=== PATIENT | female | born 1950 | race Caucasian/White ===

== ENCOUNTER → 2018-01-07 06:53 | Outpatient (CLI) | payer MEDICARE, OTHER, SELFPAY ==
--- NOTE | 2018-01-07 10:28 | STRESSREP ---
Stress Test Report Date: 01/07/2018 Procedure: Her sized tolerance test/nuclear imaging study Indications: Fatigue; weakness; palpitations Consent: Per the patient Procedure: The patient exercised on a Sj protocol for 6 minutes completing stage II achieving a peak heart rate of 148 bpm (98% predicted maximal heart rate) with a peak blood pressure 160/86 mmHg and a peak MET capacity of 7 METs. The baseline ECG demonstrated normal sinus rhythm. The peak exercise ECG demonstrated no obvious ECG changes. There was a rare PVC during exercise and recovery. The functional capacity was considered average. There was no report of chest discomfort during exercise or recovery. The examination was discontinued secondary to fatigue. Impression: 1. Technically adequate (percent predicted maximal heart rate greater than 85%) exercise tolerance test 2. Peak exercise ECG with no obvious ECG changes 3. Rare PVC during exercise and recovery 4. Nuclear images pending Myocardial perfusion imaging study: Technique: The patient was injected with 9.9 mCi of technetium 99m Cardiolite and subsequently rest SPECT Cardiolite nuclear imaging was obtained in the horizontal long, vertical long, and short axis views. The patient exercised on a Sj protocol for 6 minutes completing stage II achieving a peak heart rate of 148 bpm (98% predicted maximal heart rate) with a peak blood pressure 160/86 mmHg and a peak MET capacity of 7 METs and the patient was injected with 32.1 mCi of technetium 99m Cardiolite and subsequently stress SPECT Cardiolite nuclear imaging was obtained in the horizontal long, vertical long, and short axis views. A gated Cardiolite study at peak stress was obtained. Interpretation: Rest and stress SPECT Cardiolite nuclear imaging demonstrate status post realignment, normalization, and attenuation correction, relative uniform tracer uptake and myocardial perfusion appearing within normal limits. There are no myocardial perfusion deficits appreciated on the resting or stress polar map images. There is end systolic thickening and brightening. The gated Cardiolite study demonstrates myocardial thickening and inward wall motion. The reported LVEF 78%. Impression: 1. Rest and stress SPECT currently nuclear imaging demonstrating relative uniform tracer uptake and myocardial perfusion appearing within normal limits. 2. The gated Cardiolite study reports an LVEF of 78%. This note was generated with V[employer]Park software. Every effort was made to ensure accuracy, however, computerized ski topper mistakes may persist.
--- NOTE | 2018-01-07 10:33 | STRESSREP_ITS ---
Stress Test Report Date: 01/07/2018 Procedure: Her sized tolerance test/nuclear imaging study Indications: Fatigue; weakness; palpitations Consent: Per the patient Procedure: The patient exercised on a Sj protocol for 6 minutes completing stage II achieving a peak heart rate of 148 bpm (98% predicted maximal heart rate) with a peak blood pressure 160/86 mmHg and a peak MET capacity of 7 METs. The baseline ECG demonstrated normal sinus rhythm. The peak exercise ECG demonstrated no obvious ECG changes. There was a rare PVC during exercise and recovery. The functional capacity was considered average. There was no report of chest discomfort during exercise or recovery. The examination was discontinued secondary to fatigue. Impression: 1. Technically adequate (percent predicted maximal heart rate greater than 85% ) exercise tolerance test 2. Peak exercise ECG with no obvious ECG changes 3. Rare PVC during exercise and recovery 4. Nuclear images pending Myocardial perfusion imaging study: Technique: The patient was injected with 9.9 mCi of technetium 99m Cardiolite and subsequently rest SPECT Cardiolite nuclear imaging was obtained in the horizontal long, vertical long, and short axis views. The patient exercised on a Sj protocol for 6 minutes completing stage II achieving a peak heart rate of 148 bpm (98% predicted maximal heart rate) with a peak blood pressure 160/86 mmHg and a peak MET capacity of 7 METs and the patient was injected with 32.1 mCi of technetium 99m Cardiolite and subsequently stress SPECT Cardiolite nuclear imaging was obtained in the horizontal long, vertical long, and short axis views. A gated Cardiolite study at peak stress was obtained. Interpretation: Rest and stress SPECT Cardiolite nuclear imaging demonstrate status post realignment, normalization, and attenuation correction, relative uniform tracer uptake and myocardial perfusion appearing within normal limits. There are no myocardial perfusion deficits appreciated on the resting or stress polar map images. There is end systolic thickening and brightening. The gated Cardiolite study demonstrates myocardial thickening and inward wall motion. The reported LVEF 78%. Impression: 1. Rest and stress SPECT currently nuclear imaging demonstrating relative uniform tracer uptake and myocardial perfusion appearing within normal limits. 2. The gated Cardiolite study reports an LVEF of 78%. This note was generated with SailPlay software. Every effort was made to ensure accuracy, however, computerized thread grinder tool mistakes may persist.
== END ==
PROVIDERS: Family Provider Family Medicine; PCP Family Medicine; Visit Provider Internal Medicine Cardiovascular Disease
DX: R94.31 Abnormal electrocardiogram [ECG] [EKG] (principal); I49.3 Ventricular premature depolarization; I10 Essential (primary) hypertension; I51.7 Cardiomegaly; R53.83 Other fatigue; R53.1 Weakness; R00.2 Palpitations; Z79.899 Other long term (current) drug therapy
CPT/HCPCS: 78452; 93017; A9500; A4216

== ENCOUNTER 2018-03-30 07:30 | Outpatient (RCR) | payer MEDICARE, OTHER, SELFPAY ==
--- NOTE | 2017-12-30 10:16 | HP.PTEVAL ---
Patient's Visit Information LASHELL PAEZ is a 67 year old F referred to Physical Therapy by MD SIRI Rush with a diagnosis of CERVICALAGIA. Date of Evaluation: 12/30/17 Physical Therapist: Newton Howell, PT, - Visit Plan Frequency: 2x /Week Duration: 4 Weeks Plan: postural ex's,STRENGTHENING UE,modlaities PRN - Subjective Subjective: This 67 y/o female presents to physical therapy presents with cervicalagia. Patient has had cervical pain with symptoms to shoulders with ocassioanlly weakness BUE. Denies parathesia/tingling ocassionally right. Patient has seen Dr Shenprakali many years.Symptoms worse with turning ,flexion and extension ,lifting symptoms worse .Symptoms better with aleve. Sleeping good at night. Ocassioanlly REYNAGA ,denies dizzines but has h/o of vertigo. NO prior PT. No h/o trauma. SOCIAL: . VOCATION: retired - Pain Bilateral Neck Pain Intensity (Out of 10): 3 Pain Intensity Range: 10 Bilateral Shoulder Pain Intensity (Out of 10): 3 Pain Intensity Range: 10 Comment: UT - Objective POSTURE: mild foward posture. NEURO: denies parathesia/tingling ,reflexes inact C5-6-7 1/3,mytome weaknes C 5-6. AROM: BUE WFL. MMT:shoulder 3+/5,bicep R 3+/5,L 4-/5,TRICEP R 4-/5 ,L 4/5,WRIST FLEXORS/EX 4-/5. INSTRUMENT PANEL ASSEMBLER STRENGTH: 45# R,55# L. CERVICAL ROM: flexion min loss,extension min ,lateral flexion/rotation mod loss. PALAPTION: tender UT/levator paraspinals - Special Tests C/S Radiculapathy - Left Upper limb tension test: Negative C/S Radiculapathy - Right Upper limb tension test: Negative Sharp Edie: Negative Vertebral Artery Test: Negative Alar Ligament Test: Negative - Goals Goal 1:: Patient to be Independant with HEP Goal Time Frame: 4-6 Weeks Goal 2:: Patient to be Independant with posture for ADL'S Goal Time Frame: 4-6 Weeks Goal 3:: Patient to decrease cervical pain andshoulder pain by 50% or greater Goal Time Frame: 4-6 Weeks Goal 4:: Patinet to increase strength of BUE to 4-/5 shoulder ,elbow 4/5 to improve function. Goal Time Frame: 4-6 Weeks Goal 5:: Patient be able to perform ADL'S and housework tasks with min limiations Goal Time Frame: 4-6 Weeks - Rehabilitation Potential Physical Therapy Diagnosis: This patient has extusion in cervical C-7 ,with multiple level mod/severe foraminal and spinal stenosis sublaxation with weakness UE Rehabilitation Potential: Good - Anticipated Interventions Patient/Client Instruction: Educate patient on: Condition, Plan of Care For the Purpose of:: To decrease pain, To increase ROM, To improve muscle performance and motor function, To improve ability to perform ADL's, To increase tolerance to activity/condition/position, To improve ability of physical actions for home/community/work/leisure, To improve health of tissue, To decrease soft tissue restriction, To increase flexibility/ROM, To improve ability to perform tasks related to life management Therapeutic Exercise to Include: Strength training, Postural training, Flexibilty training Comment: BUE For the Purpose of:: To decrease pain, To increase ROM, To improve muscle performance and motor function, To improve ability to perform ADL's, To increase tolerance to activity/condition/position, To improve performance and independence with ADL's, To improve ability of physical actions for home/community/work/leisure, To improve health of tissue, To increase flexibility/ROM, To prevent re-injury TENS: Yes IF ES: Yes Cryotherapy (ice pack, ice massage): Yes Thermo therapy (hot pack): Yes Ultrasound (thermal/non thermal): Yes For the Purpose of:: To decrease pain, To decrease swelling/inflammation, To improve nutrient delivery to tissue, To increase oxygenation perfusion, To improve health of tissue, To decrease soft tissue restriction Thank you for the opportunity to evaluate your patient. For Medicare and Medicare HMO plans, please review the plan of care and approve it. It will need to be FAXED BACK to us at [phone] for Medicare purposes. Please let me know if there are questions or concerns regarding this plan of care. Physician Signature: Date:
--- NOTE | 2018-01-29 08:03 | HP.PTREVAL_ITS ---
Charlotte Bullock MD, It has been my pleasure to treat LASHELL PAEZ over the last 9 visits for CERVICALAGIA. Please see the progress note below for an update on the physical therapy plan of care! Subjective: Doing better ..pain is always there. turning cervical ,driving Objective/Function: POSTURE: rounded shoulders head fowad. NEURO: intact, REFLEXES C5-6-7. MMT: 4/5. CERVICAL ROM: flexion min loss, lateral flexion/ rotation mod loss pain right ,extension. -ANR Plan Plan: cont with POC 3visits Goals Goal 1:: Patient to be Independant with HEP Goal Time Frame: 4-6 Weeks Goal Progress: Progressing Goal 2:: Patient to be Independant with posture for ADL'S Goal Time Frame: 4-6 Weeks Goal Progress: Progressing Goal 3:: Patient to decrease cervical pain andshoulder pain by 50% or greater Goal Time Frame: 4-6 Weeks Goal Progress: Progressing Goal 4:: Patinet to increase strength of BUE to 4-/5 shoulder ,elbow 4/5 to improve function. Goal Time Frame: 4-6 Weeks Goal Progress: Progressing Goal 5:: Patient be able to perform ADL'S and housework tasks with min limiations Goal Time Frame: 4-6 Weeks Goal Progress: Progressing Anticipated Interventions Patient/Client Instruction: Educate patient on: Condition, Plan of Care For the Purpose of:: To decrease pain, To increase ROM, To improve muscle performance and motor function, To improve ability to perform ADL's, To increase tolerance to activity/condition/position, To improve ability of physical actions for home/community/work/leisure, To improve health of tissue, To decrease soft tissue restriction, To increase flexibility/ROM, To improve ability to perform tasks related to life management Therapeutic Exercise to Include: Strength training, Postural training, Flexibilty training Comment: BUE For the Purpose of:: To decrease pain, To increase ROM, To improve muscle performance and motor function, To improve ability to perform ADL's, To increase tolerance to activity/condition/position, To improve performance and independence with ADL's, To improve ability of physical actions for home/ community/work/leisure, To improve health of tissue, To increase flexibility/ROM , To prevent re-injury TENS: Yes IF ES: Yes Cryotherapy (ice pack, ice massage): Yes Thermo therapy (hot pack): Yes Ultrasound (thermal/non thermal): Yes For the Purpose of:: To decrease pain, To decrease swelling/inflammation, To improve nutrient delivery to tissue, To increase oxygenation perfusion, To improve health of tissue, To decrease soft tissue restriction Please do not hesitate to contact me at [phone] by phone or Fax: if you have questions or concerns regarding this new plan of care! Sincerely, Newton Howell PT,
--- NOTE | 2018-03-30 08:12 | HP.PTDCSUM_ITS ---
HP - PT D/C Summary It has been my pleasure to treat LASHELL PAEZ under orders from Charlotte Bullock MD, for the diagnosis of CERVICALAGIA for a total of 12 visit(s). Discharge Date: 03/30/18 Please see the following information for a summary of their discharge status. - Subjective Subjective: Doing good - Pain Bilateral Neck Pain Intensity (Out of 10): 0 Bilateral Shoulder Pain Intensity (Out of 10): 0 - Overall Improvement % Improvement: 75 - Objective Objective/Function: PALAPTION: UT/levator. NEURO:intact. CERVICAL ROM: flexion min loss,lateral flexion/rotation mod loss,extension mod loss. MMT: 4/ 5 except shoulders 4-/5 - Goals Goal 1:: Patient to be Independant with HEP Goal Progress: Progressing Goal 2:: Patient to be Independant with posture for ADL'S Goal Progress: Progressing Goal 3:: Patient to decrease cervical pain andshoulder pain by 50% or greater Goal Progress: Progressing Goal 4:: Patinet to increase strength of BUE to 4-/5 shoulder ,elbow 4/5 to improve function. Goal Progress: Progressing Goal 5:: Patient be able to perform ADL'S and housework tasks with min limiations Goal Progress: Progressing - Plan Plan: d/c to HEP - D/C Information Discharge Comments: D/C TO HEP If there are questions or concerns regarding this patient's physical therapy, please feel free to call me at [phone]. Thank you for the referral of this patient. Sincerely, Newton Howell, PT,
== END 2018-03-30 19:00 | disposition home or self-care (01) ==
LOC: PT 07:30
PROVIDERS: Family Provider Family Medicine; PCP Family Medicine; Visit Provider Family Medicine
DX: M54.2 Cervicalgia (principal)
CPT/HCPCS: 97014; 97035; 97110; 97162; 97530; G0283

== ENCOUNTER → 2018-07-21 07:12 | Outpatient (CLI) | payer MEDICARE, OTHER, SELFPAY | PROVIDERS: Family Provider Family Medicine; PCP Family Medicine; Visit Provider Family Medicine | DX: R10.9 Unspecified abdominal pain (principal) | CPT/HCPCS: 74019 ==

== ENCOUNTER → 2018-07-26 10:12 | Outpatient (CLI) | payer MEDICARE, OTHER, SELFPAY | PROVIDERS: Family Provider Family Medicine; PCP Family Medicine; Visit Provider Nurse Practitioner Adult Health | DX: N20.0 Calculus of kidney (principal) | CPT/HCPCS: 74176 ==

== ENCOUNTER → 2018-08-20 10:44 | Outpatient (CLI) | payer MEDICARE, OTHER, SELFPAY ==
[2018-08-20 12:16] LABS: Anion Gap 6 (5-15); BUN 15 mg/dL (7-18); BUN/Creat Ratio 19.1 RATIO (10-20); Calcium,Total 8.8 mg/dL (8.5-10.1); Chloride 104 mmol/L (98-107); Cholesterol 243 mg/dL (200); Creatinine, Serum 0.78 mg/dL (0.55-1.02); EST Glomerular Filtration Rate 77 mL/min (>60); Est Glom Filt Rate - Afr Amer 93 mL/min (>60); Glucose 112 mg/dL (74-106); High Density Lipoprotein 91 mg/dL; Potassium 4.2 mmol/L (3.5-5.1); Sodium Level 137 mmol/L (136-145); T4 Total, Thyroxin 12.3 ug/dL (4.8-13.9); Triglycerides 70 mg/dL; Very Low Density Lipoprotein 14 mg/dL (5-40)
== END ==
PROVIDERS: Family Provider Family Medicine; PCP Family Medicine; Visit Provider Family Medicine
DX: I10 Essential (primary) hypertension (principal); E03.9 Hypothyroidism, unspecified
CPT/HCPCS: 36415; 80048; 80061; 84436; 84443

== ENCOUNTER → 2019-05-03 07:14 | Outpatient (CLI) | payer MEDICARE, OTHER, SELFPAY ==
[2018-12-06 09:27] VITALS: BMI 25.1
[2019-05-03 09:57] LABS: Absolute Lymphocyte Count 1.35 X10^3/ul (0.83-4.51); Absolute Neutrophil Count 2.9 X10^3/uL (2.0-7.7); Basophil# 0.05 X10^3/uL; Basophil% 0.9 % (0-1); Eosinophil# 1.02 X10^3/uL; Eosinophils% 17.5 % (0-5); Hematocrit 45.1 % (37-47); Lymphocyte # 1.35 X10^3/ul (4.0); Lymphocyte % 23.2 % (19-41); Mean Corp Hgb Conc 33.3 g/gl (32-36); Mean Corpuscular Hgb 29.5 pg (27.0-32.0); Mean Corpuscular Volume 88.8 fL (81-99); Mean Platelet Vol. 10.1 fl (6.2-12.0); Monocyte# 0.48 X10^3/uL; Monocyte% 8.2 % (0-10); Neutrophil # 2.92 X10^3/uL (2.7-7.7); POSITIVE COUNT NO; POSITIVE DIFFERENTIAL NO; POSITIVE MORPHOLOGY NO; Platelet Count 217 K/mm3 (150-450); RBC Distribution Width CV 12.8 % (11.6-14.6); RBC Distribution Width SD 41.2 fl (35.1-43.9); Red Blood Count 5.08 M/mm3 (4.2-5.4); White Blood Count 5.8 K/mm3 (4.4-11.0)
[2019-05-09 12:06] LABS: Immunoglobulin E 372 IU/mL (6-495)
[2019-06-29 15:58] LABS: Oak, White <0.10
== END ==
PROVIDERS: Family Provider Family Medicine; PCP Family Medicine; Referring Provider Specialist; Visit Provider Specialist
DX: J45.50 Severe persistent asthma, uncomplicated (principal)
CPT/HCPCS: 36415; 82785; 85025; 86003

== ENCOUNTER → 2019-05-09 11:01 | Outpatient (CLI) | payer MEDICARE, OTHER, SELFPAY ==
[2018-12-06 09:27] VITALS: BMI 25.1
[2019-05-09 12:39] LABS: Hemoglobin A1c 5.7 % (4.2-6.3)
[2019-05-09 12:51] LABS: Anion Gap 7 (5-15); BUN 10 mg/dL (7-18); BUN/Creat Ratio 14.2 RATIO (10-20); Calcium,Total 8.9 mg/dL (8.5-10.1); Chloride 103 mmol/L (98-107); EST Glomerular Filtration Rate 87 mL/min (>60); Est Glom Filt Rate - Afr Amer 106 mL/min (>60); Glucose 102 mg/dL (74-106); Potassium 4.2 mmol/L (3.5-5.1); Sodium Level 141 mmol/L (136-145); Thyroid Stim Hormone (TSH) 1.19 uIU/mL (0.358-3.74)
== END ==
PROVIDERS: Family Provider Family Medicine; PCP Family Medicine; Visit Provider Family Medicine
DX: I10 Essential (primary) hypertension (principal); R73.01 Impaired fasting glucose
CPT/HCPCS: 36415; 80048; 83036; 84436; 84443

== ENCOUNTER → 2019-05-11 15:45 | Outpatient (CLI) | payer MEDICARE, OTHER, SELFPAY ==
[2018-12-06 09:27] VITALS: BMI 25.1
--- NOTE | 2019-05-11 15:50 | RAD_ITS ---
STUDY: X-RAY - LUMBAR SPINE REASON FOR EXAM: Female, 69 years old. Low back pain for 3 days. TECHNIQUE: 5 view(s) of the lumbar spine were obtained. COMPARISON: None FINDINGS: Normal lumbar lordosis. There is minimal dextroscoliosis. There is a normal alignment of the vertebrae. Normal vertebral bodies and endplates. There is moderate narrowing of L2-L3 and L3-L4 disc spaces and mildly of L4-L5. The There is no demonstrated spondylolysis of the pars interarticulares. The soft tissue structures are unremarkable. RAD/L/S Spine Min 4 Views IMPRESSION: Degenerative changes as described above. Electronically Signed: Chris Medina MD at 10:33 EDT Tel , Service support ,
== END ==
PROVIDERS: Family Provider Family Medicine; PCP Family Medicine; Referring Provider Family Medicine; Visit Provider Family Medicine
DX: M54.9 Dorsalgia, unspecified (principal)
CPT/HCPCS: 72110

== ENCOUNTER 2019-05-28 17:02 | Emergency (ER) | payer MEDICARE, OTHER, SELFPAY ==
[2018-12-06 09:27] VITALS: BMI 25.1
[2019-05-28 17:04] VITALS: BP 173/85; PULSE 90; RESP 16; TEMP 36.6; O2SAT 96; BMI 25.2
--- NOTE | 2019-05-28 17:31 | ED.VIS.GEN ---
History of Present Illness Chief Complaint: Rash Informant: Patient, Significant Other Onset: Weeks - 3 weeks Context: Gradual Onset Timing: Continuous Quality: shrap, burning Location: left lower back, left flank, left thigh Current Severity: Moderate Maximum Severity: Severe Worsened by: movement, palpation Relieved by: nothing Associated Symptoms: back pain Narrative: 69-year-old female presents with a rash. Patient few weeks ago diagnosed with shingles by her doctor. She was prescribed acyclovir. She went back with worsening pain. Her doctor then prescribed her gabapentin. She is continuing to have pain therefore her doctor has slowly increased her dose. She went back with continued pain and was given Percocet. Percocet help with the pain but she states that it made her feel loopy so she stopped taking it. Patient states the pain is somewhat improved but is not resolved. It is in the distribution where she had her shingles rash which is now crusted over. It is in her left lower back left flank and her left thigh. She has not had a fever. She has no numbness tingling or weakness. No loss of bowel or bladder function or difficulty urinating. No trauma or injury. Prior similar symptoms: Yes Recent Illness/Hospitalization: Yes Past Medical History - Allergies and Home Meds Allergies/Adverse Reactions: Allergies grass pollen Allergy (Verified 05/28/19 17:04) unknown aspartame [From Questran Light] Adverse Reaction (Verified 05/28/19 17:04) GI upset cholestyramine [From Questran Light] Adverse Reaction (Verified 05/28/19 17:04) GI upset lisinopril Adverse Reaction (Verified 05/28/19 17:04) angioedema Ottqqek-Tjs-Uop Reductase Inhibitor Adverse Reaction (Verified 05/28/19 17:04) myalgia verapamil Adverse Reaction (Verified 05/28/19 17:04) rash molds Allergy (Uncoded 05/28/19 17:04) unknown trees Allergy (Uncoded 05/28/19 17:04) unknown beta blockers Adverse Reaction (Uncoded 05/28/19 17:04) SOB Primary Care Physician: Charlotte Bullock MD [Primary Care Provider] - Prior records reviewed: Yes Smoking Status: Never smoker Review of Systems All systems negative except as indicated Musculoskeletal: Reports: Back pain Skin: Reports: Rash Physical Exam Vital Signs/Narrative: Vital Signs Temp Pulse Resp BP Pulse Ox 05/28/19 17:04 98 F 90 16 173/85 H 96 Inital Vital Signs reviewed: Yes General: Well nourished, Well developed, No Acute Distress Head: Normocephalic, Atraumatic Eyes: Perrl, EOMI ENT: Moist mucous membranes Neck: Supple, Nontender Cardiovascular: Regular rate, Regular rhythm Respiratory: No distress, CTA bilaterally, Chest nontender Abdomen: Soft, Nontender, Nondistended, Normal bowel sounds, No masses Back: Nontender. Negative for: CVA tenderness, Spinal tenderness Extremities: Nontender, No edema. Negative for: Tenderness Skin: Normal color, Rash, - - Crusting and healing vesicles left lower back and flank and left thigh. Neurological: Alert, Oriented x3, Cranial nerves II-XII grossly intact, Normal Strength, Normal Sensation, Normal DTR, Normal Gait Diagnostic/Tx/Re-eval - Medical Decision Making Patient presents with continued pain from her shingles. She is already on gabapentin. She leary of taking more prednisone because she states that she is on it too frequently because of her asthma. She did not like the way Percocet made her feel. She is already taking ibuprofen. Discussed with her that there are not many other options. At this time. Her pain does seem to be a postherpetic neuralgia. She does agree to take a short 5-day burst of prednisone. She was given her first dose in the emergency department. She will continue her gabapentin and ibuprofen and she was advised to follow-up with her primary care. ED Disposition - Plan for ED Patient: Disposition: Home or Assisted Living Diagnosis: Post herpetic neuralgia Instructions: Shingles (Herpes Zoster) Prescriptions: Prednisone [Deltasone] 40 mg PO DAILY #10 tab Transmission Status: Pending to [id number] Referrals: Charlotte Bullock MD [Primary Care Provider] -
[2019-05-28] MEDS: predniSONE 20 MG Tablet 60 MG PO (18:04)
== END 2019-05-28 18:05 | disposition home or self-care (01) ==
PROVIDERS: Emergency Provider Physician Assistant Medical; Family Provider Family Medicine; PCP Family Medicine
DX: B02.29 Other postherpetic nervous system involvement (principal); J45.909 Unspecified asthma, uncomplicated; M54.9 Dorsalgia, unspecified; Z79.82 Long term (current) use of aspirin; Z79.52 Long term (current) use of systemic steroids; Z79.899 Other long term (current) drug therapy
CPT/HCPCS: 99283

== ENCOUNTER → 2019-08-09 12:36 | Outpatient (CLI) | payer MEDICARE, OTHER, SELFPAY ==
[2019-08-09 14:12] LABS: Erythrocyte Sedimentation Rate 13 mm/hr (0-30)
[2019-08-09 14:14] LABS: Absolute Lymphocyte Count 1.54 X10^3/uL (0.83-4.51); Absolute Neutrophil Count 3.5 X10^3/uL (2.0-7.7); Basophil# 0.04 X10^3/uL; Basophil% 0.7 % (0-1); Eosinophil# 0.38 X10^3/uL; Eosinophils% 6.4 % (0-5); Hematocrit 44.3 % (37-47); Hemoglobin 14.5 g/dL (12.0-15.0); Lymphocyte # 1.54 X10^3/ul (4.0); Lymphocyte % 26.1 % (19-41); Mean Corp Hgb Conc 32.7 g/dL (32-36); Mean Corpuscular Hgb 29.8 pg (27.0-32.0); Mean Corpuscular Volume 91.2 fL (81-99); Mean Platelet Vol. 9.8 fl (6.2-12.0); Monocyte# 0.48 X10^3/uL; Monocyte% 8.1 % (0-10); NRBC Flagged by Analyzer 0 % (0-5); Neutrophil # 3.45 X10^3/uL (2.7-7.7); Neutrophil % 58.5 % (47-70); Platelet Count 221 K/mm3 (150-450); RBC Distribution Width CV 12.5 % (11.6-14.6); Red Blood Count 4.86 M/mm3 (4.2-5.4); White Blood Count 5.9 K/mm3 (4.4-11.0)
[2019-08-09 14:21] LABS: Vitamin B12 589 pg/mL (211-911)
== END ==
PROVIDERS: Family Provider Family Medicine; PCP Family Medicine; Referring Provider Family Medicine; Visit Provider Family Medicine
DX: K06.8 Other specified disorders of gingiva and edentulous alveolar ridge (principal)
CPT/HCPCS: 36415; 82607; 82746; 85025; 85652

== ENCOUNTER → 2019-12-14 11:44 | Outpatient (CLI) | payer MEDICARE, OTHER, SELFPAY ==
--- NOTE | 2019-12-14 11:51 | RAD_ITS ---
STUDY: X-RAY - LUMBAR SPINE REASON FOR EXAM: Female, 69 years old. Pain along both sides of lower back TECHNIQUE: 5 view(s) of the lumbar spine were obtained. COMPARISON: 05/11/2019 FINDINGS: Normal lumbar lordosis. There is no substantial scoliosis. There is a normal alignment of the vertebrae. Normal vertebral bodies and endplates. There is mild multi-level degenerative disc disease with multi-level disc space narrowing. There is no demonstrated fracture. Stable possible bilateral renal stones as much as 9 mm RAD/L/S Spine Min 4 Views IMPRESSION: Mild multilevel degenerative changes, stable. No acute abnormalities. Electronically Signed: Patrice Ibarra MD at 21:38 EST , Service support ,
== END ==
PROVIDERS: Family Provider Family Medicine; PCP Family Medicine; Referring Provider Family Medicine; Visit Provider Family Medicine
DX: M54.9 Dorsalgia, unspecified (principal)
CPT/HCPCS: 72110

== ENCOUNTER → 2020-01-06 09:04 | Outpatient (CLI) | payer MEDICARE, OTHER, SELFPAY ==
[2020-01-06 08:30] VITALS: BMI 25.9
[2020-01-06 09:48] LABS: AST(SGOT) 17 U/L (15-37); Alanine Aminotransfer ALT/SGPT 22 U/L (13-56); Albumin, Serum 3.5 g/dL (3.2-5.0); Alkaline Phosphatase 63 U/L (45-117); Bilirubin, Direct 0.12 mg/dL (0.00-0.30); Cholesterol 221 mg/dL (200); Globulin 3.7 g/dL (2.2-4.2); High Density Lipoprotein 83 mg/dL; Protein, Total 7.2 g/dL (6.4-8.2); Triglycerides 59 mg/dL; Very Low Density Lipoprotein 12 mg/dL (5-40)
== END ==
PROVIDERS: PCP Family Medicine; Referring Provider Internal Medicine Cardiovascular Disease; Visit Provider Internal Medicine Cardiovascular Disease
DX: E78.2 Mixed hyperlipidemia (principal)
CPT/HCPCS: 36415; 80061; 80076

== ENCOUNTER → 2020-01-30 09:37 | Outpatient (CLI) | payer MEDICARE, OTHER, SELFPAY ==
[2020-01-06 08:30] VITALS: BMI 25.9
[2020-01-30 12:56] LABS: Absolute Neutrophil Count 4.2 X10^3/uL (2.0-7.7); Basophil# 0.05 X10^3/uL; Basophil% 0.8 % (0-1); Eosinophil# 0.46 X10^3/uL; Eosinophils% 6.9 % (0-5); Mean Corp Hgb Conc 31.8 g/dL (32-36); Mean Corpuscular Hgb 28.9 pg (27.0-32.0); Mean Corpuscular Volume 90.9 fL (81-99); Mean Platelet Vol. 10.1 fl (6.2-12.0); Monocyte# 0.49 X10^3/uL; Monocyte% 7.4 % (0-10); NRBC Flagged by Analyzer 0 % (0-5); Neutrophil # 4.24 X10^3/uL (2.7-7.7); Neutrophil % 63.6 % (47-70); Platelet Count 246 K/mm3 (150-450); RBC Distribution Width CV 13.1 % (11.6-14.6); RBC Distribution Width SD 42.9 fl (35.1-43.9); Red Blood Count 4.84 M/mm3 (4.2-5.4); White Blood Count 6.7 K/mm3 (4.4-11.0)
[2020-01-30 13:17] LABS: Hemoglobin A1c 6.1 % (4.2-6.3)
[2020-01-30 13:33] LABS: ALB/GLOB Ratio 0.8 RATIO (0.9-2.4); AST(SGOT) 17 U/L (15-37); Alanine Aminotransfer ALT/SGPT 24 U/L (13-56); Albumin, Serum 3.4 g/dL (3.2-5.0); Alkaline Phosphatase 71 U/L (45-117); Anion Gap 6 (5-15); BUN 15 mg/dL (7-18); BUN/Creat Ratio 20.2 RATIO (10-20); Calcium,Total 9.1 mg/dL (8.5-10.1); Chloride 107 mmol/L (98-107); Creatinine, Serum 0.74 mg/dL (0.55-1.02); EST Glomerular Filtration Rate 82 mL/min (>60); Est Glom Filt Rate - Afr Amer 99 mL/min (>60); Globulin 4.1 g/dL (2.2-4.2); Glucose 109 mg/dL (74-106); Potassium 4.1 mmol/L (3.5-5.1); Protein, Total 7.5 g/dL (6.4-8.2); Sodium Level 140 mmol/L (136-145); T4 Free Direct 1.12 ng/dL (0.76-1.46); Thyroid Stim Hormone (TSH) 0.88 uIU/mL (0.358-3.74)
== END ==
PROVIDERS: PCP Family Medicine; Visit Provider Family Medicine
DX: E03.9 Hypothyroidism, unspecified (principal); I10 Essential (primary) hypertension; R73.01 Impaired fasting glucose
CPT/HCPCS: 36415; 80053; 83036; 84439; 84443; 85025

== ENCOUNTER → 2021-03-04 07:30 | Outpatient (CLI) | payer MEDICARE, OTHER, SELFPAY ==
[2020-01-06 08:30] VITALS: BMI 25.9
[2021-03-04 10:21] LABS: AST(SGOT) 17 U/L (15-37); Alanine Aminotransfer ALT/SGPT 21 U/L (13-56); Albumin, Serum 3.3 g/dL (3.2-5.0); Alkaline Phosphatase 54 U/L (45-117); Bilirubin, Direct 0.09 mg/dL (0.00-0.30); Cholesterol 216 mg/dL (200); Globulin 3.4 g/dL (2.2-4.2); High Density Lipoprotein 86 mg/dL; Protein, Total 6.7 g/dL (6.4-8.2); Triglycerides 99 mg/dL; Very Low Density Lipoprotein 20 mg/dL (5-40)
== END ==
PROVIDERS: PCP Family Medicine; Referring Provider Internal Medicine Cardiovascular Disease; Visit Provider Internal Medicine Cardiovascular Disease
DX: E78.2 Mixed hyperlipidemia (principal)
CPT/HCPCS: 36415; 80061; 80076

== ENCOUNTER → 2021-03-07 10:30 | Outpatient (CLI) | payer MEDICARE, OTHER, SELFPAY ==
[2020-01-06 08:30] VITALS: BMI 25.9
[2021-03-07 12:13] LABS: Absolute Lymphocyte Count 1.47 X10^3/uL (0.83-4.51); Absolute Neutrophil Count 3.1 X10^3/uL (2.0-7.7); Basophil# 0.05 X10^3/uL; Basophil% 0.9 % (0-1); Eosinophil# 0.53 X10^3/uL; Eosinophils% 9.6 % (0-5); Hematocrit 45.5 % (37-47); Hemoglobin 14.4 g/dL (12.0-15.0); Lymphocyte # 1.47 X10^3/ul (4.0); Lymphocyte % 26.6 % (19-41); Mean Corp Hgb Conc 31.6 g/dL (32-36); Mean Corpuscular Hgb 29.4 pg (27.0-32.0); Mean Platelet Vol. 10.5 fl (6.2-12.0); Monocyte# 0.41 X10^3/uL; Monocyte% 7.4 % (0-10); NRBC Flagged by Analyzer 0 % (0-5); Neutrophil # 3.05 X10^3/uL (2.7-7.7); Neutrophil % 55.3 % (47-70); Platelet Count 250 K/mm3 (150-450); RBC Distribution Width CV 12.7 % (11.6-14.6); RBC Distribution Width SD 43.7 fl (35.1-43.9); Red Blood Count 4.89 M/mm3 (4.2-5.4); White Blood Count 5.5 K/mm3 (4.4-11.0)
[2021-03-07 12:37] LABS: Anion Gap 2 (5-15); BUN 13 mg/dL (7-18); BUN/Creat Ratio 16.2 RATIO (10-20); Calcium,Total 8.9 mg/dL (8.5-10.1); Chloride 103 mmol/L (98-107); EST Glomerular Filtration Rate 75 mL/min (>60); Est Glom Filt Rate - Afr Amer 90 mL/min (>60); Glucose 108 mg/dL (74-106); Potassium 3.8 mmol/L (3.5-5.1); Sodium Level 138 mmol/L (136-145); T4 Free Direct 1.12 ng/dL (0.76-1.46); Thyroid Stim Hormone (TSH) 1.12 uIU/mL (0.358-3.74)
[2021-03-07 12:38] LABS: Hemoglobin A1c 5.8 % (3.8-5.6)
== END ==
PROVIDERS: PCP Family Medicine; Referring Provider Family Medicine; Visit Provider Family Medicine
DX: E03.9 Hypothyroidism, unspecified (principal); I10 Essential (primary) hypertension; R73.01 Impaired fasting glucose
CPT/HCPCS: 36415; 80048; 83036; 84439; 84443; 85025

== ENCOUNTER → 2021-03-28 15:22 | Outpatient (CLI) | payer MEDICARE, OTHER, SELFPAY ==
[2021-03-28 14:21] VITALS: BMI 25.7
[2021-03-28 18:16] LABS: Magnesium 2.2 mg/dL (1.6-2.6)
== END ==
PROVIDERS: PCP Family Medicine; Referring Provider Internal Medicine Cardiovascular Disease; Visit Provider Internal Medicine Cardiovascular Disease
DX: R07.9 Chest pain, unspecified (principal); R06.00 Dyspnea, unspecified; E78.2 Mixed hyperlipidemia; I10 Essential (primary) hypertension; I49.3 Ventricular premature depolarization
CPT/HCPCS: 36415; 83735

== ENCOUNTER → 2021-04-02 06:05 | Outpatient (CLI) | payer MEDICARE, OTHER, SELFPAY ==
[2021-03-28 14:21] VITALS: BMI 25.7
--- NOTE | 2021-04-02 18:02 | STRESSREP ---
Stress Test Report Date: 04-02-2021 Procedure: Exercise tolerance test/imaging study Indications: Shortness of breath/dyspnea on exertion Consent: Per the patient Procedure: The patient exercised on a Sj protocol for 9 minutes and 15 seconds completing Stage III and 15 seconds of Stage IV achieving a peak heart rate of 116 bpm (78% predicted maximal heart rate) with a peak blood pressure 184/7 mmHg and a peak MET capacity of 10 METs. The baseline ECG demonstrated normal sinus rhythm. The peak exercise ECG demonstrated no obvious ECG changes. There was a rare PAC during exercise and an rare PVC during recovery. The functional capacity was considered good. There was chest tightness during exercise with spontaneous resolution in recovery. The examination was discontinued secondary to chest tightness and dyspnea. Impression: 1. Technically adequate (percent predicted maximal heart rate greater than 85%) exercise tolerance test 2. Peak exercise ECG with no obvious ECG changes 3. There was a rare PAC during exercise and a rare PVC during recovery 4. Nuclear images pending Myocardial perfusion imaging study: Technique: The patient was injected with 11.3 mCi of technetium 99m Cardiolite and subsequently rest SPECT Cardiolite nuclear imaging was obtained in the horizontal long, vertical long, and short axis views. The patient exercised on a Sj protocol for 9 minutes and 15 seconds completing Stage III and 15 seconds of Stage IV achieving a peak heart rate of 116 bpm (78% predicted maximal heart rate) with a peak blood pressure 184/7 mmHg and a peak MET capacity of 10 METs. The patient was injected with 32.1 mCi of technetium 99m Cardiolite and subsequently stress SPECT Cardiolite nuclear imaging was obtained in the horizontal long, vertical long, and short axis views. A gated Cardiolite study at peak stress was obtained. Interpretation: Rest and stress SPECT Cardiolite nuclear imaging status post realignment, normalization, and attenuation correction, demonstrates the appearance of relative uniform tracer uptake and myocardial perfusion appearing within normal limits. There is end systolic thickening and brightening. The gated Cardiolite study demonstrates myocardial thickening and inward wall motion. The reported LVEF is 79%. Impression: 1. Rest and stress SPECT Cardiolite nuclear imaging demonstrate relative uniform tracer uptake and myocardial perfusion appearing within normal limits. 2. The gated Cardiolite study reports an LVEF of 79%. This note was generated with Twicketeration software. It may contain incorrect words, spelling, and punctuation that were not noted in checking the note before signing.
== END ==
PROVIDERS: PCP Family Medicine; Visit Provider Internal Medicine Cardiovascular Disease
DX: R06.09 Other forms of dyspnea (principal); R07.9 Chest pain, unspecified; I49.3 Ventricular premature depolarization; I10 Essential (primary) hypertension; E78.2 Mixed hyperlipidemia
CPT/HCPCS: 78452; 93017; A9500; A4216

== ENCOUNTER → 2021-04-06 09:03 | Outpatient (CLI) | payer MEDICARE, OTHER, SELFPAY ==
[2021-03-28 14:21] VITALS: BMI 25.7
[2021-04-06 09:55] LABS: Anion Gap 4 (5-15); BUN 26 mg/dL (7-18); BUN/Creat Ratio 27.8 RATIO (10-20); Calcium,Total 9.1 mg/dL (8.5-10.1); Chloride 101 mmol/L (98-107); Creatinine, Serum 0.93 mg/dL (0.55-1.02); EST Glomerular Filtration Rate 63 mL/min (>60); Est Glom Filt Rate - Afr Amer 76 mL/min (>60); Glucose 125 mg/dL (74-106); Potassium 3.6 mmol/L (3.5-5.1); Sodium Level 139 mmol/L (136-145)
== END ==
PROVIDERS: PCP Family Medicine; Referring Provider Internal Medicine Cardiovascular Disease; Visit Provider Internal Medicine Cardiovascular Disease
DX: R06.00 Dyspnea, unspecified (principal); R07.9 Chest pain, unspecified; E78.2 Mixed hyperlipidemia; I10 Essential (primary) hypertension; I49.3 Ventricular premature depolarization
CPT/HCPCS: 36415; 80048

== ENCOUNTER → 2021-09-06 06:52 | Outpatient (CLI) | payer MEDICARE, OTHER, SELFPAY ==
[2021-09-06 07:52] LABS: AST(SGOT) 24 U/L (15-37); Alanine Aminotransfer ALT/SGPT 25 U/L (13-56); Albumin, Serum 3.6 g/dL (3.2-5.0); Alkaline Phosphatase 44 U/L (45-117); Bilirubin, Direct 0.11 mg/dL (0.00-0.30); Cholesterol 210 mg/dL (200); Globulin 3.9 g/dL (2.2-4.2); High Density Lipoprotein 79 mg/dL; Protein, Total 7.5 g/dL (6.4-8.2); Triglycerides 86 mg/dL; Very Low Density Lipoprotein 17 mg/dL (5-40)
== END ==
PROVIDERS: PCP Family Medicine; Referring Provider Internal Medicine Cardiovascular Disease; Visit Provider Internal Medicine Cardiovascular Disease
DX: E78.2 Mixed hyperlipidemia (principal); I10 Essential (primary) hypertension; I49.3 Ventricular premature depolarization; I51.7 Cardiomegaly
CPT/HCPCS: 36415; 80061; 80076

== ENCOUNTER 2021-12-06 13:38 | Outpatient (CLI) | payer MEDICARE, OTHER, SELFPAY ==
--- NOTE | 2021-12-06 13:41 | VDLE_ITS ---
Reason For Study: PAIN RIGHT LEFT GSV is normal. CFV is compressible, spontaneous, phasic, CFV is compressible, spontaneous, phasic, competent, and demonstrates normal competent and demonstrates normal augmentation. augmentation. FV is compressible, spontaneous, phasic, competent and demonstrates normal augmentation. POP V is compressible, spontaneous, phasic, competent and demonstrates normal augmentation. T/P Trunk is compressible. PTV is compressible. RT PerV is compressible. Procedure Exam performed in department. A preliminary report was called and/or faxed to DR GAYLE. VL/Venous Duplex US, Unilateral Interpretation Summary Deep veins of the right lower extremity are patent and compressible segmentally . There is no evidence of right lower extremity deep vein thrombosis. Valvular competence erika ears intact within the proximal deep venous system on the right . The right great saphenous vein a ppears patent and compressible segmentally. Ordering Physician: lFoyd Gayle Referring Physician: Floyd Gayle Performed By: Dara Huang, DONNIECS, RVT
== END 2021-12-06 23:59 | disposition short-term general hospital (02) ==
LOC: CVS 13:40
PROVIDERS: PCP Family Medicine; Referring Provider Family Medicine; Visit Provider Family Medicine
DX: M79.661 Pain in right lower leg (principal)
CPT/HCPCS: 93971

== ENCOUNTER → 2022-06-12 | Outpatient (CLI) | payer MEDICARE, OTHER, SELFPAY ==
[2022-06-12 11:58] LABS: AST(SGOT) 23 U/L (15-37); Alanine Aminotransfer ALT/SGPT 25 U/L (13-56); Albumin, Serum 3.5 g/dL (3.2-5.0); Alkaline Phosphatase 46 U/L (45-117); Cholesterol 207 mg/dL (200); Globulin 3.6 g/dL (2.2-4.2); High Density Lipoprotein 75 mg/dL; Protein, Total 7.1 g/dL (6.4-8.2); Triglycerides 82 mg/dL; Very Low Density Lipoprotein 16 mg/dL (5-40)
== END | disposition home or self-care (01) ==
LOC: LAB 09:01
PROVIDERS: PCP Family Medicine; Referring Provider Internal Medicine Cardiovascular Disease; Visit Provider Internal Medicine Cardiovascular Disease
DX: I49.3 Ventricular premature depolarization (principal); I51.7 Cardiomegaly; E78.2 Mixed hyperlipidemia
CPT/HCPCS: 36415; 80061; 80076

== ENCOUNTER → 2022-07-02 | Outpatient (CLI) | payer MEDICARE, OTHER, SELFPAY | END | disposition home or self-care (01) | LOC: PSN 08:31 | PROVIDERS: PCP Family Medicine; Referring Provider Internal Medicine Cardiovascular Disease; Visit Provider Internal Medicine Cardiovascular Disease | DX: R42 Dizziness and giddiness (principal) | CPT/HCPCS: 93225; 93226 ==

== ENCOUNTER → 2022-08-22 | Outpatient (CLI) | payer MEDICARE, OTHER, SELFPAY ==
[2022-08-22 17:58] LABS: Absolute Neutrophil Count 3.7 X10^3/uL (2.0-7.7); Basophil# 0.04 X10^3/uL; Basophil% 0.6 % (0-1); Eosinophil# 0.37 X10^3/uL; Eosinophils% 5.8 % (0-5); Hematocrit 42.8 % (37-47); Hemoglobin 13.8 g/dL (12.0-15.0); Lymphocyte % 26.7 % (19-41); Mean Corp Hgb Conc 32.2 g/dL (32-36); Mean Platelet Vol. 10.2 fl (6.2-12.0); Monocyte% 7.9 % (0-10); NRBC Flagged by Analyzer 0 % (0-5); Neutrophil # 3.72 X10^3/uL (2.7-7.7); Neutrophil % 58.5 % (47-70); Platelet Count 236 K/mm3 (150-450); RBC Distribution Width CV 12.5 % (11.6-14.6); RBC Distribution Width SD 42.6 fl (35.1-43.9); White Blood Count 6.4 K/mm3 (4.4-11.0)
[2022-08-22 18:23] LABS: Anion Gap 9 (5-15); BUN 16 mg/dL (7-18); Calcium,Total 9.4 mg/dL (8.5-10.1); Chloride 101 mmol/L (98-107); Creatinine, Serum 0.84 mg/dL (0.55-1.02); EST Glomerular Filtration Rate 70 mL/min (>60); Est Glom Filt Rate - Afr Amer 85 mL/min (>60); Glucose 102 mg/dL (74-106); Potassium 3.6 mmol/L (3.5-5.1); Sodium Level 139 mmol/L (136-145); Thyroid Stim Hormone (TSH) 0.78 uIU/mL (0.358-3.74)
== END | disposition home or self-care (01) ==
LOC: MTLAB 15:13
PROVIDERS: PCP Family Medicine; Referring Provider Family Medicine; Visit Provider Family Medicine
DX: E03.9 Hypothyroidism, unspecified (principal); I10 Essential (primary) hypertension; E78.00 Pure hypercholesterolemia, unspecified
CPT/HCPCS: 36415; 80048; 84443; 85025

== ENCOUNTER → 2022-12-18 | Outpatient (CLI) | payer MEDICARE, OTHER, SELFPAY ==
[2022-12-18 18:01] LABS: Absolute Lymphocyte Count 1.58 X10^3/uL (0.83-4.51); Absolute Neutrophil Count 4.6 X10^3/uL (2.0-7.7); Basophil# 0.06 X10^3/uL; Basophil% 0.8 % (0-1); Eosinophil# 0.41 X10^3/uL; Eosinophils% 5.7 % (0-5); Erythrocyte Sedimentation Rate 18 mm/hr (0-30); Hematocrit 41.8 % (37-47); Hemoglobin 13.4 g/dL (12.0-15.0); Lymphocyte # 1.58 X10^3/ul (0.83-4.51); Lymphocyte % 21.9 % (19-41); Mean Corp Hgb Conc 32.1 g/dL (32-36); Mean Corpuscular Volume 90.5 fL (81-99); Monocyte# 0.61 X10^3/uL; Monocyte% 8.4 % (0-10); NRBC Flagged by Analyzer 0 % (0-5); Neutrophil # 4.55 X10^3/uL (2.7-7.7); Neutrophil % 62.9 % (47-70); Platelet Count 240 K/mm3 (150-450); RBC Distribution Width CV 12.8 % (11.6-14.6); RBC Distribution Width SD 42.1 fl (35.1-43.9); Red Blood Count 4.62 M/mm3 (4.2-5.4); White Blood Count 7.2 K/mm3 (4.4-11.0)
[2022-12-18 18:17] LABS: CRP < 2.90 mg/L (0.0-3.0); Rheumatoid Factor < 10.0 IU/mL (<15)
[2022-12-23 13:07] LABS: Cytoplasmic Ab (C-ANCA) <1:20 titer (Neg:<1:20)
[2022-12-24 20:51] LABS: CCP IgG Antibodies 0 units (0-19); Perinuclear Ab (P-ANCA) >1:640 titer (Neg:<1:20)
== END | disposition home or self-care (01) ==
LOC: BFHLAB 16:01
PROVIDERS: PCP Family Medicine; Visit Provider Family Medicine
DX: M25.50 Pain in unspecified joint (principal)
CPT/HCPCS: 36415; 85025; 85652; 86038; 86140; 86200; 86256; 86431

== ENCOUNTER → 2023-03-13 | Outpatient (CLI) | payer MEDICARE, OTHER, SELFPAY ==
[2023-03-13 11:07] LABS: Vitamin D,25 Hydroxy 31.9 ng/mL
[2023-03-13 11:33] LABS: AST(SGOT) 20 U/L (15-37); Alanine Aminotransfer ALT/SGPT 23 U/L (13-56); Albumin, Serum 3.4 g/dL (3.2-5.0); Alkaline Phosphatase 56 U/L (45-117); Bilirubin, Direct 0.13 mg/dL (0.00-0.30); Cholesterol 260 mg/dL (200); Globulin 3.8 g/dL (2.2-4.2); High Density Lipoprotein 84 mg/dL; Protein, Total 7.2 g/dL (6.4-8.2); Triglycerides 98 mg/dL; Very Low Density Lipoprotein 20 mg/dL (5-40)
== END | disposition home or self-care (01) ==
PROVIDERS: Nurse Practitioner Gerontology; PCP Family Medicine; Referring Provider Family Medicine; Visit Provider Family Medicine
DX: E78.2 Mixed hyperlipidemia (principal); R53.83 Other fatigue; E55.9 Vitamin D deficiency, unspecified
CPT/HCPCS: 36415; 80061; 80076; 82306

== ENCOUNTER 2023-03-29 20:30 | Emergency (ER) | payer MEDICARE, OTHER, SELFPAY ==
[2023-03-29 20:31] VITALS: BP 192/86; PULSE 65; RESP 18; TEMP 35.8; O2SAT 93
--- NOTE | 2023-03-29 20:45 | EX.ED.DYSGE1 ---
HPI History of Present Illness Chief Complaint: Dizziness Informant: patient Onset/Context/Timing Onset: Today Narrative Narrative: Patient presents with dizziness for the past 2 hours. She states anytime she turns her head side to side she feels dizzy and nauseated. She states she recently had vertigo and this feels somewhat different. She was diagnosed with a sinus infection last week and is currently on cefdinir. She states her sinus pressure is improving. [facility] Medical History (Updated 03/29/23 @ 21:[address] Hanh Kelley MD) Asthma Celiac disease Essential hypertension HTN (hypertension) Iatrogenic hypothyroidism Left ventricular hypertrophy Mixed hyperlipidemia PVC (premature ventricular contraction) Shingles Ventricular premature depolarization Home Medications aspirin 81 mg tablet,delayed release (Adult Low Dose Aspirin) 81 mg PO QDAY 11/27/17 [History Last Taken Unknown] levothyroxine 88 mcg tablet 88 mcg PO QDAY 90 days #90 tabs 11/27/17 [History Last Taken Unknown] albuterol sulfate 90 mcg/actuation aerosol inhaler (ProAir HFA) 2 puff inhalation Q6H PRN 01/06/20 [History Last Taken Unknown] budesonide 0.5 mg/2 mL suspension for nebulization 0.5 mg inhalation BID 01/06/20 [History Last Taken Unknown] ipratropium 0.5 mg-albuterol 3 mg (2.5 mg base)/3 mL nebulization soln 3 ml inhalation BID 01/06/20 [History Last Taken Unknown] multivitamin 1 tab PO DAILY 01/06/20 [History Last Taken Unknown] calcium carbonate 500 mg calcium (1,250 mg) tablet (Calcium 500) 500 mg PO DAILY 03/28/21 [History Last Taken Unknown] ascorbic acid (vitamin C) 1,000 mg tablet 1 g PO DAILY 06/23/22 [History Last Taken Unknown] cholecalciferol (vitamin D3) 50 mcg (2,000 unit) tablet 50 mcg PO DAILY 06/23/22 [History Last Taken Unknown] fluticasone furoate 27.5 mcg/actuation nasal spray,suspension 2 spray intranasal BID 0 days 06/23/22 [History Last Taken Unknown] montelukast 10 mg tablet 10 mg PO QHS 06/23/22 [History Last Taken Unknown] omega 3-ody-fah-fish oil 60 mg-90 mg-500 mg capsule (Fish Oil) 1 cap PO DAILY 06/23/22 [History Last Taken Unknown] hydrochlorothiazide 25 mg tablet 25 mg PO DAILY #90 tabs 01/16/23 [Rx Last Taken Unknown] metoprolol succinate 50 mg tablet,extended release 24 hr 50 mg PO DAILY #90 tabs 01/16/23 [Rx Last Taken Unknown] doxazosin 1 mg tablet (Cardura) 1 mg PO QHS #30 tabs 03/20/23 [Rx Last Taken Unknown] meclizine 25 mg tablet 25 mg PO TID PRN dizziness or vertigo #20 tabs 03/29/23 [Rx Last Taken Unknown] ondansetron 4 mg disintegrating tablet 4 mg PO Q8H PRN PRN Nausea #10 tabs 03/29/23 [Rx Last Taken Unknown] Allergy/AdvReac Type Severity Reaction Status Date / Time grass pollen Allergy unknown Verified 03/29/23 20:33 hydralazine Allergy Other Verified 03/29/23 20:33 mold Allergy NEEDS Verified 03/29/23 20:33 FOLLOW-UP tree and shrub pollen Allergy NEEDS Verified 03/29/23 20:33 FOLLOW-UP amlodipine AdvReac Intermediate gum issues Verified 03/29/23 20:33 aspartame AdvReac GI upset Verified 03/29/23 20:33 [From Questran Light] Beta-Blockers AdvReac Shortness Verified 03/29/23 20:33 (Beta-Adrenergic Bloc of breath cholestyramine AdvReac GI upset Verified 03/29/23 20:33 [From Questran Light] lisinopril AdvReac angioedema Verified 03/29/23 20:33 Bcxeqwc-BOZ-AiR Reductase AdvReac myalgia Verified 03/29/23 20:33 Inhibitor [Dxcxqlz-Tlb-Hqu Reductase Inhibitor] verapamil AdvReac rash Verified 03/29/23 20:33 Family History Father Hypertension COPD (chronic obstructive pulmonary disease) Brother Diabetes Hypertension Hx of CABG Brain tumor Surgical History History of laparoscopic cholecystectomy History of left heart catheterization (LHC) Social History Smoking Status: Never smoker alcohol intake: never substance use type: does not use diet: Weight Watchers caffeine: Yes Type: coffee what type of physical activity do you participate in: none seatbelt use: always do you feel safe at home: Yes ROS ROS ED Constitutional Constitutional ED: Denies chills or fever(s) Eyes Eyes: Denies change in vision or discharge from eye(s) ENT ENT ED: Denies discharge from eye(s), rhinorrhea or sore throat Cardiovascular Cardiovascular: Denies chest pain Respiratory/Chest Respiratory/Chest: Denies cough or dyspnea Gastrointestinal Gastrointestinal: Reports nausea; Denies abdominal pain or vomiting Musculoskeletal Musculoskeletal: Denies back pain or extremity pain Integumentary Denies Abrasions or rash Neurologic Neurologic: Denies headache(s) or weakness Endocrine Endocrinology: Denies polydipsia or polyuria Allergic/Immunologic Allergic/Immunologic ED: Denies lip swelling or urticaria EXAM Physical Exam Const Vital Signs: 03/29/23 20:31 03/29/23 21:03 Temperature 96.5 F L Temperature Source Temporal Pulse Rate 65 Respiratory Rate 18 Respiratory Effort Normal Non-Labored Respiratory Pattern Normal Blood Pressure 192/86 H Blood Pressure Mean 121 Pulse Ox 93 Oxygen Delivery Method Room Air Positive well nourished and well developed General Appearance ED: well developed HEENT Reports normocephalic and head/scalp atraumatic Eyes PERRL and EOMs intact bilaterally Neck supple Chest Wall inspection of chest normal and palpation of chest normal Resp normal respiratory effort and clear to auscultation bilaterally Cardio regular rate and regular rhythm GI normal to inspection, nondistended, normoactive bowel sounds Palpation: soft Extremity normal to inspection Neuro oriented x3 and no sensory deficits noted Sensorium / Orientation: alert Motor Exam: strength 5/5 throughout Psych mental status grossly normal Skin no rashes or lesions noted MDM MDM MDM Narrative Medical decision making narrative: Patient placed on cardiac cath tech. She is given Zofran and Antivert. EKG obtained to evaluate for cardiac arrhythmia/ischemia. Labwork obtained to evaluate for leukocytosis, anemia, and electrolyte derangement. Lab Data Attestation: I reviewed the patient's lab results. Labs: Laboratory Results - last 24 hr 03/29/23 03/29/23 20:54 20:54 WBC 5.4 RBC 4.64 Hgb 13.7 Hct 41.7 MCV 89.9 MCH 29.5 MCHC 32.9 RDW Std Deviation 39.9 RDW Coeff of Omari 12.2 Plt Count 243 MPV 9.5 Immature Gran % (Auto) 0.400 Neut % (Auto) 44.7 L Lymph % (Auto) 35.3 Hunt % (Auto) 9.8 Eos % (Auto) 8.9 H Baso % (Auto) 0.9 Absolute Neuts (auto) 2.4 Absolute Lymphs (auto) 1.90 Nucleated RBC % 0 Sodium 137 Potassium 3.5 Chloride 102 Carbon Dioxide 30.0 Anion Gap 5 BUN 32 H Creatinine 1.00 Estim Creat Clear Calc 31.46 Est GFR (MDRD) Af Amer 70 Est GFR (MDRD) Non-Af 57 L BUN/Creatinine Ratio 32.0 H Glucose 114 H Calcium 8.9 Treatment and Re-Evaluation :: Patient has had no arrhythmias noted on cardiac cath tech. EKG is sinus bradycardia at 59 bpm with no acute ischemia. CBC and chemistry studies are remarkable only for slightly elevated BUN at 32. Creatinine is normal at 1.0. On repeat evaluation patient reports improvement in her symptoms. She states if she turns her head side to side very quickly she will still have dizziness. She will be given prescriptions for Zofran and Antivert at home. With her symptoms being completely reproducible by head turning I do feel this is peripheral vertigo and she does not require any further imaging for causes of central vertigo. Return instructions were provided. Discharge Plan Triage Chief Complaint: Dizziness ED Provider: Hanh Kelley Dx/Rx/DC Orders Clinical Impression: Vertigo Instructions: ED Dizziness, Uncertain Cause, ED Vertigo, Unspecified Prescriptions: New ondansetron 4 mg tablet,disintegrating 4 mg PO Q8H PRN PRN (Reason: Nausea) Qty: 10 0RF meclizine 25 mg tablet 25 mg PO TID PRN (Reason: dizziness or vertigo) Qty: 20 0RF No Action levothyroxine 88 mcg tablet 88 mcg PO QDAY 90 Days Qty: 90 Label Comments: aspirin [Adult Low Dose Aspirin] 81 mg tablet,delayed release (DR/EC) 81 mg PO QDAY fluticasone furoate 27.5 mcg/actuation spray,suspension 2 spray INTRANASAL BID Label Comments: into both nostrils multivitamin Tablet 1 tab PO DAILY budesonide 0.5 mg/2 mL suspension for nebulization 0.5 mg INHALATION BID ipratropium-albuterol 0.5 mg-3 mg(2.5 mg base)/3 mL solution for nebulization 3 ml INHALATION BID albuterol sulfate [ProAir HFA] 90 mcg/actuation HFA aerosol inhaler 2 puff INHALATION Q6H PRN calcium carbonate [Calcium 500] 500 mg calcium (1,250 mg) tablet 500 mg PO DAILY montelukast 10 mg tablet 10 mg PO QHS omega 5-hky-xtv-fish oil [Fish Oil] 60-90-500 mg capsule 1 cap PO DAILY ascorbic acid (vitamin C) 1,000 mg tablet 1 g PO DAILY cholecalciferol (vitamin D3) 50 mcg (2,000 unit) tablet 50 mcg PO DAILY doxazosin [Cardura] 1 mg tablet 1 mg PO QHS Qty: 30 6RF metoprolol succinate 50 mg tablet extended release 24 hr 50 mg PO DAILY Qty: 90 3RF hydrochlorothiazide 25 mg tablet 25 mg PO DAILY Qty: 90 3RF Primary Care Provider: Rebekah Morocho Referrals: Rebekah Morocho MD [Primary Care Provider] - 1 Week if not improving Disposition Disposition: Home, Self Care
[2023-03-29 20:59] LABS: Absolute Neutrophil Count 2.4 X10^3/uL (2.0-7.7); Basophil# 0.05 X10^3/uL; Basophil% 0.9 % (0-1); Eosinophil# 0.48 X10^3/uL; Eosinophils% 8.9 % (0-5); Hematocrit 41.7 % (37-47); Hemoglobin 13.7 g/dL (12.0-15.0); Lymphocyte % 35.3 % (19-41); Mean Corp Hgb Conc 32.9 g/dL (32-36); Mean Corpuscular Hgb 29.5 pg (27.0-32.0); Mean Corpuscular Volume 89.9 fL (81-99); Mean Platelet Vol. 9.5 fl (6.2-12.0); Monocyte# 0.53 X10^3/uL; Monocyte% 9.8 % (0-10); NRBC Flagged by Analyzer 0 % (0-5); Neutrophil # 2.41 X10^3/uL (2.7-7.7); Neutrophil % 44.7 % (47-70); Platelet Count 243 K/mm3 (150-450); RBC Distribution Width CV 12.2 % (11.6-14.6); RBC Distribution Width SD 39.9 fl (35.1-43.9); Red Blood Count 4.64 M/mm3 (4.2-5.4); White Blood Count 5.4 K/mm3 (4.4-11.0)
[2023-03-29] MEDS: Meclizine HCl 25 MG Tablet PO (21:01)
[2023-03-29] MEDS: Ondansetron 4 MG/2 ML Vial IV (21:01)
[2023-03-29 21:05] VITALS: BMI 17.0
[2023-03-29 21:11] LABS: Anion Gap 5 (5-15); BUN 32 mg/dL (7-18); Calcium,Total 8.9 mg/dL (8.5-10.1); Chloride 102 mmol/L (98-107); EST Glomerular Filtration Rate 57 mL/min (>60); Est Glom Filt Rate - Afr Amer 70 mL/min (>60); Estimated Creatinine Clearance 31.46 ml/min; Glucose 114 mg/dL (74-106); Potassium 3.5 mmol/L (3.5-5.1); Sodium Level 137 mmol/L (136-145)
[2023-03-29 21:48] VITALS: BP 151/99; PULSE 60; RESP 17; O2SAT 99
== END 2023-03-29 21:54 | disposition home or self-care (01) ==
PROVIDERS: Emergency Provider Emergency Medicine; PCP Family Medicine; Visit Provider Emergency Medicine
DX: R42 Dizziness and giddiness (principal); I10 Essential (primary) hypertension; E78.2 Mixed hyperlipidemia
CPT/HCPCS: 80048; 85025; 93005; 96361; 96374; 99285; J7040; A4216; J2405

== ENCOUNTER → 2023-06-03 | Outpatient (CLI) | payer MEDICARE, OTHER, SELFPAY ==
[2023-06-03 08:43] LABS: AST(SGOT) 17 U/L (15-37); Alanine Aminotransfer ALT/SGPT 20 U/L (13-56); Albumin, Serum 3.3 g/dL (3.2-5.0); Alkaline Phosphatase 52 U/L (45-117); Anion Gap 4 (5-15); BUN 19 mg/dL (7-18); BUN/Creat Ratio 20.8 RATIO (10-20); Bilirubin, Direct 0.09 mg/dL (0.00-0.30); Calcium,Total 8.8 mg/dL (8.5-10.1); Chloride 107 mmol/L (98-107); Cholesterol 232 mg/dL (200); Creatinine, Serum 0.91 mg/dL (0.55-1.02); EST Glomerular Filtration Rate 64 mL/min (>60); Est Glom Filt Rate - Afr Amer 77 mL/min (>60); Globulin 3.8 g/dL (2.2-4.2); Glucose 100 mg/dL (74-106); High Density Lipoprotein 81 mg/dL; Potassium 4.4 mmol/L (3.5-5.1); Protein, Total 7.1 g/dL (6.4-8.2); Sodium Level 140 mmol/L (136-145); Triglycerides 144 mg/dL; Very Low Density Lipoprotein 29 mg/dL (5-40)
== END | disposition home or self-care (01) ==
PROVIDERS: PCP Family Medicine; Referring Provider Nurse Practitioner Gerontology; Visit Provider Nurse Practitioner Gerontology
DX: I10 Essential (primary) hypertension (principal); E78.2 Mixed hyperlipidemia
CPT/HCPCS: 36415; 80048; 80061; 80076

== ENCOUNTER → 2023-06-26 | Outpatient (CLI) | payer MEDICARE, OTHER, SELFPAY ==
--- NOTE | 2023-06-26 11:57 | RAD_ITS ---
EXAM: XR RIGHT KNEE COMPLETE, 4 OR MORE VIEWS CLINICAL INDICATION: PAIN TECHNIQUE: Four or more views of the right knee. COMPARISON: No relevant prior studies available. FINDINGS: BONES/JOINTS: See below. No acute findings. SOFT TISSUES: Suspected mild superficial soft tissue swelling anterior to the patella. No convincing joint effusion or fracture. Narrowing of the lateral patellofemoral joint compartment. Well-maintained medial joint compartment but mild subchondral sclerosis of the tibial surface. No radiopaque foreign body. RAD/Knee 4 or More Views IMPRESSION: Minimal degenerative and soft tissue changes. Electronically Signed: Guerline Fernández MD at 8:24 EDT ,
== END | disposition home or self-care (01) ==
LOC: MTRAD 11:54
PROVIDERS: PCP Family Medicine; Referring Provider Family Medicine; Visit Provider Family Medicine
DX: M71.20 Synovial cyst of popliteal space [Baker], unspecified knee (principal)
CPT/HCPCS: 73564

== ENCOUNTER → 2023-07-22 | Outpatient (CLI) | payer MEDICARE, OTHER, SELFPAY ==
--- NOTE | 2023-07-22 08:48 | VDLE_ITS ---
Reason For Study: RLE Pain RIGHT LEFT GSV is normal. CFV is compressible, spontaneous, phasic, CFV is compressible, spontaneous, phasic, competent, and demonstrates normal competent and demonstrates normal augmentation. augmentation. FV is compressible, spontaneous, phasic, competent and demonstrates normal augmentation. POP V is compressible, spontaneous, phasic, competent and demonstrates normal augmentation. T/P Trunk is compressible. PTV is compressible. RT PerV is compressible. Anechoic non vascularized area noted in Rt Pop Fossa measuring approximatey 3.44cm x 1.15cm. Procedure This is a venous duplex using B-mode, color flow and spectral Doppler. Exam performed in department. The exam was diagnostic. A preliminary report was called and/or faxed to Dr. Morocho office. VL/Venous Duplex US, Unilateral Interpretation Summary Deep veins of the right lower extremity are patent and compressible segmentally . There is no evidence of right lower extremity deep vein thrombosis. Valvular competence erika ears intact within the proximal deep venous system on the right . The right great saphenous vein a ppears patent and compressible segmentally. A non-vascular, hypoechoic structure is noted in the right popliteal space, measuring 3.44 cm x 1.15 cm. This probably represents a popliteal cyst. Clinical correlation is advised. Ordering Physician: Rebekah Morocho Referring Physician: Rebekah Morocho Performed By: Eduardo Andrea RVT
== END | disposition home or self-care (01) ==
LOC: CVS 08:47
PROVIDERS: PCP Family Medicine; Referring Provider Family Medicine; Visit Provider Family Medicine
DX: M79.604 Pain in right leg (principal); M71.20 Synovial cyst of popliteal space [Baker], unspecified knee
CPT/HCPCS: 93971

== ENCOUNTER → 2023-08-25 | Outpatient (CLI) | payer MEDICARE, OTHER, SELFPAY ==
[2023-08-25 12:15] LABS: Absolute Lymphocyte Count 1.35 X10^3/uL (0.83-4.51); Absolute Neutrophil Count 3.1 X10^3/uL (2.0-7.7); Basophil# 0.05 X10^3/uL; Basophil% 0.9 % (0-1); Eosinophil# 0.45 X10^3/uL; Eosinophils% 8.4 % (0-5); Hematocrit 43.9 % (37-47); Hemoglobin 13.7 g/dL (12.0-15.0); Lymphocyte # 1.35 X10^3/ul (0.83-4.51); Lymphocyte % 25.2 % (19-41); Mean Corp Hgb Conc 31.2 g/dL (32-36); Mean Corpuscular Hgb 29.5 pg (27.0-32.0); Mean Corpuscular Volume 94.4 fL (81-99); Mean Platelet Vol. 10.3 fl (6.2-12.0); Monocyte# 0.44 X10^3/uL; Monocyte% 8.2 % (0-10); NRBC Flagged by Analyzer 0 % (0-5); Neutrophil # 3.06 X10^3/uL (2.7-7.7); Neutrophil % 57.1 % (47-70); Platelet Count 173 K/mm3 (150-450); RBC Distribution Width CV 12.5 % (11.6-14.6); RBC Distribution Width SD 43.2 fl (35.1-43.9); Red Blood Count 4.65 M/mm3 (4.2-5.4); White Blood Count 5.4 K/mm3 (4.4-11.0)
[2023-08-25 12:41] LABS: Hemoglobin A1c 5.9 % (3.8-5.6)
[2023-08-25 12:49] LABS: Anion Gap 4 (5-15); BUN 12 mg/dL (7-18); BUN/Creat Ratio 13.7 RATIO (10-20); Calcium,Total 8.5 mg/dL (8.5-10.1); Chloride 109 mmol/L (98-107); Creatinine, Serum 0.88 mg/dL (0.55-1.02); EST Glomerular Filtration Rate 67 mL/min (>60); Est Glom Filt Rate - Afr Amer 81 mL/min (>60); Glucose 94 mg/dL (74-106); Potassium 4.3 mmol/L (3.5-5.1); Sodium Level 141 mmol/L (136-145); Thyroid Stim Hormone (TSH) 1.02 uIU/mL (0.358-3.74)
== END | disposition home or self-care (01) ==
LOC: MTLAB 11:03
PROVIDERS: PCP Family Medicine; Referring Provider Family Medicine; Visit Provider Family Medicine
DX: E03.9 Hypothyroidism, unspecified (principal); I10 Essential (primary) hypertension; R73.01 Impaired fasting glucose
CPT/HCPCS: 36415; 80048; 83036; 84443; 85025

== ENCOUNTER 2023-08-26 10:00 | Outpatient (RCR) | payer MEDICARE, OTHER, SELFPAY ==
--- NOTE | 2023-07-28 07:47 | HP.PTEVAL_ITS ---
Patient's Visit Information Visit Information Visit Information: LASHELL PAEZ is a 73 year old F referred to Physical Therapy by Dr. Rebekah Morocho MD with a diagnosis of knee pain, Giordano's cyst. Date of Evaluation: 07/28/23 Physical Therapist: RSEEKANTH Douglsa Visit Plan Frequency: 2x /Week Duration: 6 Weeks Plan: 2X/ week for 6 weeks for stretching of the R piriformis, R hip ER, R HS and R gastroc, strengthening of the R hip and knee, gait training with HEP HEP: seated piriformis stretch (R knee to the L shoulder and also R hip ER with trunk flexion, HS stretch long sitting, gastroc stretch with towel in long sitting) Subjective Subjective: She has a Bakers Cyst behind her R knee and they did an x-ray and ultrasound. No blood clots. She had some Naproxen and it made her sick and it did not do anything and so she stopped it. It does not hurt all the time. It is numb and still and once in awhile she will get sharp pains. She has not tried strengthening. She is still mowing etc. It is very uncomfortable. If she rolls over in bed it might bother her. She can do stairs but by the time she gets to the top she will have to pull herself up. She does not feel her R knee is weak and it is not giving out on her. Pain R knee pain: Pain Intensity (Out of 10): 1 Pain Intensity Range: 4 Objective Objective: Gait: Walks with decrease stance time on the R LE. Pt is able to walk on heels and toes without any issue LE MMT: R hip flex R 10.3 and L 15.3 R knee ext 16.2 and L 21.8 R knee flex 5.5 and L 9.6 R hip abd in sidelying 9.5 and 12.4 R hip ext 5.5 and L 10.1 R knee flex 123 degrees (increase pain at end range flexion and L 137 degrees) Patella DTR's: 2+/3 Flexibility: Pain with stretching R HS, R gastroc, R piriformis, and hip ER are all tight Decreased ability to cross R leg over the L and decreased R hip ER AROM/PROM Balance/Special Test Scores Lower Extremity Functional Score: 35 Goals Goal 1:: I HEP Goal Time Frame: 4-6 Weeks Goal 2:: Increase L LE strength (at the time of the eval: LE MMT: R hip flex R 10.3 and L 15.3 R knee ext 16.2 and L 21.8 R knee flex 5.5 and L 9.6 R hip abd in sidelying 9.5 and 12.4 R hip ext 5.5 and L 10.1)/ Goal Time Frame: 4-6 Weeks Goal 3:: Walk with equal stance time on B LE's Goal Time Frame: 4-6 Weeks Goal 4:: Be able to cross her R leg over her L without pain and good ROM Goal Time Frame: 4-6 Weeks Rehabilitation Potential Rehabilitation Potential: Good Anticipated Interventions Patient/Client Instruction: Educate patient on: Condition and Plan of Care For the Purpose of:: To decrease pain, To increase ROM, To improve nutrient delivery to tissue, To improve muscle performance and motor function, To improve ability to perform ADL's, To increase tolerance to activity/condition/position, To improve performance and independence with ADL's, To decrease level of supervision to perform tasks, To improve ability of physical actions for home/community/work/leisure, To improve gait and locomotor functions, To improve health of tissue, To decrease soft tissue restriction and To increase flexibility/ROM Therapeutic Exercise to Include: Strength training, Endurance training, Balance training, Flexibilty training, Gait and locomotor training, Neuromotor development, Passive ROM and Active ROM For the Purpose of:: To decrease pain, To increase ROM, To improve nutrient delivery to tissue, To improve muscle performance and motor function, To improve ability to perform ADL's, To increase tolerance to activity/condition/position, To improve performance and independence with ADL's, To decrease level of supervision to perform tasks, To improve ability of physical actions for home/community/work/leisure, To improve gait and locomotor functions, To improve health of tissue, To decrease soft tissue restriction and To increase flexibility/ROM Functional Training to Include: Gait training For the Purpose of:: To improve gait and locomotor functions Manual Therapy Techniques to Include: Mobilization, Passive ROM and Soft tissue mobilization For the Purpose of:: To decrease pain, To decrease swelling/inflammation, To increase ROM and To improve nutrient delivery to tissue Text: Thank you for the opportunity to evaluate your patient. For Medicare and Medicare HMO plans, please review the plan of care and approve it. It will need to be FAXED BACK to us at [phone] for Medicare purposes. For Medicare only, by signing this I certify the plan of care. Please let me know if there are questions or concerns regarding this plan of care. Physician Signature: Date:
--- NOTE | 2023-08-26 10:26 | HP.PTDCSUM ---
Discharge Summary D/C summary: It has been my pleasure to treat LASHELL PAEZ referred by Dr. Rebekah Morocho MD, with the diagnosis of knee pain, Giordano's cyst for a total of 9 visit(s). Discharge Date: 08/26/23 Please see the following information for a summary of their discharge status. Subjective Subjective: No knee pain and the HS is better. Pain R knee pain: Pain Intensity (Out of 10): 1 R groin: Pain Intensity (Out of 10): 1 Overall Improvement % Improvement: 90 Objective Objective/Function: R hip flex R 12 and L 15.3 R knee ext 29.3 and L 25.7 R knee flex 17.3 and L 14 R hip abd in sidelying 18.1 and 17.2 R hip ext 15.3 and L 13.1 Goals Goal 1:: I HEP Goal Progress: Goal Met Goal 2:: Increase L LE strength (at the time of the eval: LE MMT: R hip flex R 10.3 and L 15.3 R knee ext 16.2 and L 21.8 R knee flex 5.5 and L 9.6 R hip abd in sidelying 9.5 and 12.4 R hip ext 5.5 and L 10.1)/ Goal Progress: Goal Met Goal 3:: Walk with equal stance time on B LE's Goal Progress: Goal Met Goal 4:: Be able to cross her R leg over her L without pain and good ROM Goal Progress: Goal Met Plan Plan: DC PT to HEP D/C Information Discharge Comments: DC PT to HEP d/c sentence: If there are questions or concerns regarding this patient's physical therapy, please feel free to call me at [phone]. Thank you for the referral of this patient. Sincerely, Prema Kwon, MPT Balance/Gait/Functional tests Balance/Special Test Scores Lower Extremity Functional Score: 61 Improvement % Improvement: 90
== END 2023-08-26 13:27 | disposition home or self-care (01) ==
LOC: PT 10:00
PROVIDERS: PCP Family Medicine; Referring Provider Family Medicine; Visit Provider Family Medicine
DX: M71.20 Synovial cyst of popliteal space [Baker], unspecified knee (principal)
CPT/HCPCS: 97110; 97161; 97530

== ENCOUNTER → 2023-12-08 | Outpatient (CLI) | payer MEDICARE, OTHER, SELFPAY ==
--- OUTSIDE RECORDS SUMMARY | 2023-12-08 12:02 | XMS RPT_ITS | CCD ---
Author Name Unknown Address [address] [place] [address] Organization [facility] Care Team Providers Care Etcher Enameling Name Role Phone Lambert Gayle MD Primary Care Provider Rebekah Morocho MD Primary Care Provider LAMBERT GAYLE Primary Care Unavailable REBEKAH MOROCHO Referring Unavailable REBEKAH MOROCHO Referring Unavailable REBEKAH MOROCHO Primary Care Unavailable Allergies Allergy Classification Reported Allergen(s) Allergy Type Date of Onset Reaction(s) Facility (5 sources) Azithromycin; Translations: [AZITHROMYCIN] Drug Allergy 1 Swelling [facility] Work Phone: (5 sources) Dust; Translations: [DUST] Propensity to adverse reactions 5 [facility] Work Phone: (5 sources) ezetimibe / Simvastatin; Translations: [EZETIMIBE-SIMV ASTATIN] Drug Allergy 1 Other: See Comments [facility] (5 sources) Grass pollen; Translations: [GRASS POLLEN] Propensity to adverse reactions 5 [facility] Work Phone: (5 sources) Lisinopril; Translations: [LISINOPRIL] Drug Allergy 1 Swelling [facility] Work Phone: (5 sources) Metoprolol; Translations: [METOPROLOL SUCCINATE] Drug Allergy 0 [facility] Work Phone: (5 sources) Mold Extract; Translations: [MOLD] Drug Allergy 5 [facility] Work Phone: (5 sources) Tree; Translations: [TREES] Propensity to adverse reactions 5 [facility] Work Phone: (5 sources) Verapamil; Translations: [VERAPAMIL HCL] Drug Allergy 8 Rash [facility] Work Phone: (4 sources) MITES [Other] Propensity to adverse reactions 5 [facility] Work Phone: (1 source) OTHER; Translations: [OTHER] Propensity to adverse reactions (disorder) 5 [facility] Other [place] [facility] Medications Completed/Discontinued Medications Medication Drug Class(es) [...] Type Care Provider Facility Start: 08-28-[address] [facility] Facilit y:[facility] Start: 08-28-2023 End: 08-28-2023 Subsequent hospital [...] Activity Detail Author Start: 07-02-2025 Colonoscopy COLONOSCOPY [facility] Start: 07-02-2025 COLORECTAL CANCER SCREENING COLORECTAL CANCER SCREENING [facility] Start: 07-31-2023 Influenza vaccination Influenza Vacc ine (#1) [facility] Start: 05-15-2023 Mammography MAMMOGRAM [facility] Start: 02-03-2023 Covid-19 Vaccine (6 - Pfizer series) Covid-19 Vaccine (6 - Pfizer series) [facility] Start: 11-30-2022 Advance Directive Discussion Advance Directive Discussion [facility] Start: 11-30-2022 Depression Assessment Depression Ass essment [facility] Start: 11-30-2021 ADVANCE DIRECTIVE DISCUSSION ADVANCE DIRECTIVE DISCUSSION [facility] Start: 11-30-2021 DEPRESSION ASSESSMENT DEPRESSION ASS ESSMENT [facility] Start: 10-22-2016 Lipid 1996 panel - S dee or Plasma Lipid Screening [facility] Start: 10-22-2016 LIPID SCREEN LIPID SCREEN [facility] Start: 10-22-2014 DIABETES SCREEN DIABETES SCREEN [facility] Start: 10-22-2014 Diabetes Screening Diabetes Screenin g [facility] Start: 1998 SHINGRIX VACCINE (1 of 2) SHINGRIX V ACCINE (1 of 2) [facility] Start: 1993 COLOGUARD (FIT-DNA) COLOGUARD (FIT-D NA) [facility] Start: [address] COLONOGRAPHY [facility] Start: 1993 FECAL OCCULT BLOOD FECAL OCCULT BLOO D [facility] Start: 1993 SIGMOIDOSCOPY SIGMOIDOSCOPY [facility] Start: 1967 Urine microalbumin profile [facility] Start: 1966 ANNUAL PCP TEAM IT PROGRAM MANAGER MADDIE DISEASE VISIT ANNUAL PCP TEAM CHRONIC DISEASE VISIT [facility] Start: 1966 BP CONTROLLED (<130/80) BP CONTROLLE D (<130/80) [facility] Start: 1966 HEPATITIS C SCREENING HEPATITIS C SC REENING [facility] Start: 1966 SPIROMETRY SPIROMETRY [facility] Start: 1960 Adult depression scr eening assessment DEPRESSION SCREENING [facility] Start: 1954 Pneumococcal Vaccine : 65+ (1 - PCV) Pneumococcal Vaccine: 65+ (1 - PCV) [facility] Start: 1954 PNEUMOCOCCAL: 65+ (1 - PCV) PNEUMOCOCCAL: 65+ (1 - PCV) [facility] Immunizations Immunization Date Immunization Notes Care Provider Fa cility 08-22-2022 influenza virus vaccine, unspecified formulation [facility] Work Phone: [facility] 10-17-2010 influenza virus vaccine, unspecified formulation [facility] Work Phone: [facility] Work Phone: Payers Date Payer Category Payer Private Health Insurance [facility] A[employer] SUPPLEMENT [id number] 2014-Present [phone] [id number] [place] [address] Indemni [id number] 2014 Private Health Insurance [facility] [employer] SUPPLEMENT [id number] 2014-Present [phone] [address] [place] [address] Indemnity [id number] 2014 Unknown [id number] 2012 Medicare MEDICARE MEDICAR E A AND B [id number] 2012-Present [phone] [place] [address] Medicare [id number] 2012 Medicare MEDICARE MEDICAR E A AND B [id number] 2012-Present [phone] [place] [address] Medicare [id number] 2012 Medicare [id number] Social History Date Type Detail Facility Tobacco smoking stat NHIS Never smoked tobacco [facility] Start: 07-05-2020 Alcohol intake Current drinke r of alcohol (finding) [facility] Start: 1950 Sex Assigned At Female [facility] Start: 05-05-2022 End: 10-21-2022 Exposure to SARS-CoV-2 (event) Not sure [facility] Start: 07-05-2020 End: 08-28-2023 History of Social function [facility] Start: 07-05-2020 End: 08-28-2023 Tobacco use panel [facility] National Score (1-10 0), lower number is lower risk 50 [facility] Start: 03-13-2021 Gender identity Identifies as female gender (finding) [facility] Start: 03-13-2021 Sexual orientation Heterosexual (fin chente) [facility] Progress note 08-28-2023 Note Date & Type Note Facility 08-28-2023 Note HNO ID: [id number] Author: Isabelle Guillen RT(R) Service: Radiology Author [...] RT Jaylin(R) August 28, 2023 1:12 PM [facility] History of Present illness Narrative 08-28-2023 [...] 2023 1:12 PM documented in this encounter [facility] Progress note 10-21-2022 Note Date & Type Note Facility 10-21-2022 Note HNO ID: [id number] Author: CESAR Mosqueda Service: Radiology Author Type: [...] RT Sierra October 21, 2022 9:37 AM [facility] History of Present illness Narrative 10-21-2022 [...] 2022 9:37 AM documented in this encounter [facility] Note 05-15-2022 Letter - Mammography Coordinator - 05/15/2022 8:51 AM EDT Note Date & Type Note Facility 05-15-2022 Miscellaneous Notes May 15, 2022 PID: [id number] Myra Matthews [address] [place] [address] Dear Ms. Matthews, We are pleased to [...] report will be kept on file at [facility] as part of your permanent medical record and are available for your continuing care. Thank you for allowing us to help in meeting your health care needs. Sincerely, Dr. Rios Interpreting Radiologist [facility] (Normal over 40) documented in this encounter [facility] History of Present illness Narrative 05-15-2022 Renetta [...] 2022 8:38 AM documented in this encounter [facility] Advance Directives No Advanced Directives Records FoundDocuments on File Type Date Recorded Patient Salon Supervisor Expl anation Advance Directive(s) 03/12/2021 9:26 AM Advance Directive(s) 07/02/2020 12:51 PM Advance Directive(s) 01/30/2020 11:07 AM Advance Directive(s) 05/03/2015 1:00 PM Advance Directive(s) 03/22/2010 10:29 PM Documents on File Type Date Recorded Patient Salon Supervisor Expl anation Advance Directive(s) 05/03/2015 1:00 PM [...] or prosecute any alcohol or drug abuse patient.[facility] the event this information is protected by the Federal Confidentiality of Alcohol and Drug Abuse Patient Records regulations: The Federal rules restrict any use of the information to criminally investigate or prosecute any alcohol or drug abuse patient.[facility] the event this information is protected by the Federal Confidentiality of Alcohol and Drug Abuse Patient Records regulations: The Federal rules restrict any use of the information to criminally investigate or prosecute any alcohol or drug abuse patient.[facility] the event this information is protected by the Federal Confidentiality of Alcohol and Drug Abuse Patient Records regulations: The Federal rules restrict any use of the information to criminally investigate or prosecute any alcohol or drug abuse patient.[facility] Care Teams (unrecognized sec tion and content) Etcher Enameling Relationship Specialty Start Date End Date Lambert Gayle MD PCP - General 05/01/15 Etcher Enameling Relationship Specialty Start Date End Date Rebekah Morocho MD [address] [facility] [place] [address] PCP - General Family Medicine 08/27/23 INFORMATION SOURCE (unrecogn ized section and content) DATE CREATED AUTHOR AUTHOR'S ORGANIZ ATION 09/05/2023 [facility] FOR RECORDS PERTAINING TO PATIENTS WHO ARE [...] BE BASED ON THE PRIMARY CLINICAL RECORDS. [employer] provides no warranty or guarantee of the accuracy or completeness of information in this document.
[2023-12-09 16:09] LABS: H.Pylori Breath Test Negative (Negative)
== END | disposition home or self-care (01) ==
LOC: LAB 11:08
PROVIDERS: PCP Nurse Practitioner Family; Referring Provider Nurse Practitioner Family; Visit Provider Nurse Practitioner Family
DX: R10.30 Lower abdominal pain, unspecified (principal); R14.0 Abdominal distension (gaseous)
CPT/HCPCS: 83013

== ENCOUNTER → 2023-12-08 | Outpatient (CLI) | payer MEDICARE, OTHER, SELFPAY ==
--- OUTSIDE RECORDS SUMMARY | 2023-12-08 11:33 | XMS RPT_ITS | CCD ---
Author Name Unknown Address [address] [place] [address] Organization [facility] Care Team Providers Care Final Block Press Operator Name Role Phone Lambert Gayle MD Primary Care Provider Rebekah Morocho MD Primary Care Provider LAMBERT GAYLE Primary Care Unavailable REBEKAH MOROCHO Referring Unavailable REBEKAH MOROCHO Referring Unavailable REBEKAH MOROCHO Primary Care Unavailable Allergies Allergy Classification Reported Allergen(s) Allergy Type Date of Onset Reaction(s) Facility (5 sources) Azithromycin; Translations: [AZITHROMYCIN] Drug Allergy 1 Swelling [facility] Work Phone: (5 sources) Dust; Translations: [DUST] Propensity to adverse reactions 5 [facility] Work Phone: (5 sources) ezetimibe / Simvastatin; Translations: [EZETIMIBE-SIMV ASTATIN] Drug Allergy 1 Other: See Comments [facility] (5 sources) Grass pollen; Translations: [GRASS POLLEN] Propensity to adverse reactions 5 [facility] Work Phone: (5 sources) Lisinopril; Translations: [LISINOPRIL] Drug Allergy 1 Swelling [facility] Work Phone: (5 sources) Metoprolol; Translations: [METOPROLOL SUCCINATE] Drug Allergy 0 [facility] Work Phone: (5 sources) Mold Extract; Translations: [MOLD] Drug Allergy 5 [facility] Work Phone: (5 sources) Tree; Translations: [TREES] Propensity to adverse reactions 5 [facility] Work Phone: (5 sources) Verapamil; Translations: [VERAPAMIL HCL] Drug Allergy 8 Rash [facility] Work Phone: (4 sources) MITES [Other] Propensity to adverse reactions 5 [facility] Work Phone: (1 source) OTHER; Translations: [OTHER] Propensity to adverse reactions (disorder) 5 [facility] Other [facility] Medications Completed/Discontinued Medications Medication Drug Class(es) Dates Sig (Normalized) Sig (Original) Albuterol (4 sources) beta2-Adrenergic Agonist ALBUTER OL INHALATION Inhale 2.5 mg as instructed. 0 Active Problems Active Problems Problem Classification Problem Date Documented Da te Episodic/Chronic Asthma (4 sources) Asthma; Translations: [Unspecified asthma, uncomplicated] Onset: 01-10-2010 01-10-2010 Chronic Disorders of lipid metabolism (4 sources) Hyperlipidemia; Translations: [Hyperlipidemia, unspecified] Onset: 01-10-2010 01-10-2010 Chronic Essential hypertension (4 sources) Benign essential hypertension; Translations: [Essential (primary) hypertension] Onset: 07-30-2011 07-30-2011 Chronic Other and ill-defined heart disease (4 sources) Left ventricular hypertrophy; Translations: [Cardiomegaly] Onset: 01-10-2010 01-10-2010 Chronic Other screening for suspected conditions (not mental disorders or infectious disease) (5 sources) Patient encounter status; Translations: [Encounter for screening for malignant neoplasm of colon] Onset: 05-03-2015 05-03-2015 Episodic Thyroid disorders (4 sources) Acquired hypothyroidism; Translations: [Other specified hypothyroidism] Onset: 10-14-2006 10-14-2006 Chronic Past or Other Problems Problem Classification Problem Date Documented Da te Episodic/Chronic Diabetes mellitus without complication (4 sources) Impaired fasting glycemia; Translations: [Impaired fasting glucose] Onset: 01-10-2010 01-10-2010 Episodic Fracture of lower limb (4 sources) Closed fracture of talus; Translations: [Unspecified fracture of unspecified talus, initial encounter for closed fracture] Onset: 03-06-2008 03-06-2008 Episodic Nonmalignant breast conditions (4 sources) Breast lump; Translations: [Unspecified lump in unspecified breast] Onset: 02-12-2016 11-25-2021 Episodic Other and unspecified benign neoplasm (4 sources) Polyp of colon; Translations: [Polyp of colon] Onset: 01-10-2010 01-10-2010 Episodic Sprains and strains (4 sources) Sprain of ankle; Translations: [Sprain of unspecified ligament of unspecified ankle, initial encounter] Onset: 03-06-2008 03-06-2008 Episodic Results Test Name Value Interpretation Reference Range Facil ity Encounters Encounter Date Encounter Type Care Provider Facility Start: 08-28-2023 ambulatory [facility] NICOLE Facilit y:[facility] Start: 08-28-2023 End: 08-28-2023 Subsequent hospital visit by physician Screen/Diagnostic Mammo 2 [facility] Work Phone: Mammography Procedures Date Procedure Procedure Detail Performing Clinician Start: 05-15-2022 PRIYA SCREENING W EMELYN Gayle MD Work Phone: Start: 05-15-2022 Mammography [facility] Work Phone: Start: 07-02-2020 Colonoscopy [facility] Work Phone: Start: 10-22-2011 Lipid 1996 panel - S dee or Plasma [facility] Work Phone: Plan of Treatment Date Care Activity Detail Author Start: 07-02-2025 Colonoscopy COLONOSCOPY [facility] Start: 07-02-2025 COLORECTAL CANCER SCREENING COLORECTAL CANCER SCREENING [facility] Start: 07-31-2023 Influenza vaccination Influenza Vacc ine (#1) [facility] Start: 05-15-2023 Mammography MAMMOGRAM [facility] Start: 02-03-2023 Covid-19 Vaccine (6 - Pfizer series) Covid-19 Vaccine (6 - Pfizer series) [facility] Start: 11-30-2022 Advance Directive Discussion Advance Directive Discussion [facility] Start: 11-30-2022 Depression Assessment Depression Ass essment [facility] Start: 11-30-2021 ADVANCE DIRECTIVE DISCUSSION ADVANCE DIRECTIVE DISCUSSION [facility] Start: 11-30-2021 DEPRESSION ASSESSMENT DEPRESSION ASS ESSMENT [facility] Start: 10-22-2016 Lipid 1996 panel - S dee or Plasma Lipid Screening [facility] Start: 10-22-2016 LIPID SCREEN LIPID SCREEN [facility] Start: 10-22-2014 DIABETES SCREEN DIABETES SCREEN [facility] Start: 10-22-2014 Diabetes Screening Diabetes Screenin g [facility] Start: 1998 SHINGRIX VACCINE (1 of 2) SHINGRIX V ACCINE (1 of 2) [facility] Start: 1993 COLOGUARD (FIT-DNA) COLOGUARD (FIT-D NA) [facility] Start: [address] COLONOGRAPHY [facility] Start: 1993 FECAL OCCULT BLOOD FECAL OCCULT BLOO D [facility] Start: 1993 SIGMOIDOSCOPY SIGMOIDOSCOPY [facility] Start: 1967 Urine microalbumin profile [facility] Start: 1966 ANNUAL PCP TEAM HOUSEKEEPER MANAGER MADDIE DISEASE VISIT ANNUAL PCP TEAM CHRONIC DISEASE VISIT [facility] Start: 1966 BP CONTROLLED (<130/80) BP CONTROLLE D (<130/80) [facility] Start: 1966 HEPATITIS C SCREENING HEPATITIS C SC REENING [facility] Start: 1966 SPIROMETRY SPIROMETRY [facility] Start: 1960 Adult depression scr eening assessment DEPRESSION SCREENING [facility] Start: 1954 Pneumococcal Vaccine : 65+ (1 - PCV) Pneumococcal Vaccine: 65+ (1 - PCV) [facility] Start: 1954 PNEUMOCOCCAL: 65+ (1 - PCV) PNEUMOCOCCAL: 65+ (1 - PCV) [facility] Immunizations Immunization Date Immunization Notes Care Provider Fa cility 08-22-2022 influenza virus vaccine, unspecified formulation [facility] Work Phone: [facility] 10-17-2010 influenza virus vaccine, unspecified formulation [facility] Work Phone: [facility] Work Phone: Payers Date Payer Category Payer Private Health Insurance [facility] AARP SUPPLEMENT [id number] 2014-Present [phone] [address] [place] [address] Indemni [id number] 2014 Private Health Insurance [facility] AARP SUPPLEMENT [id number] 2014-Present [phone] [address] [place] [address] Indemnity [id number] 2014 Unknown [id number] 2012 Medicare MEDICARE MEDICAR E A AND B [id number] 2012-Present [phone] [place] [address] Medicare [id number] 2012 Medicare MEDICARE MEDICAR E A AND B [id number] 2012-Present [phone] [place] [address] Medicare [id number] 2012 Medicare [id number] Social History Date Type Detail Facility Tobacco smoking stat NHIS Never smoked tobacco [facility] Start: 07-05-2020 Alcohol intake Current drinke r of alcohol (finding) [facility] Start: 1950 Sex Assigned At Female [facility] Start: 05-05-2022 End: 10-21-2022 Exposure to SARS-CoV-2 (event) Not sure [facility] Start: 07-05-2020 End: 08-28-2023 History of Social function [facility] Start: 07-05-2020 End: 08-28-2023 Tobacco use panel [facility] National Score (1-10 0), lower number is lower risk 50 [facility] Start: 03-13-2021 Gender identity Identifies as female gender (finding) [facility] Start: 03-13-2021 Sexual orientation Heterosexual (fin chente) [facility] Progress note 08-28-2023 Note Date & Type Note Facility 08-28-2023 Note HNO ID: [id number] Author: Isabelle Guillen RT(R) Service: Radiology Author Type: Technologist Type: Progress Notes Filed: 08/28/2023 1:12 PM Note Text: Radiology Service Progress Note PATIENT NAME: Myra Matthews DATE OF SERVICE: August 28, 2023 TIME: 1:12 PM PATIENT IDENTITY VERIFICATION COMPLETED USING TWO (2) IDENTIFIERS: Name and Date of confirmed by patient verbally. FALL SCREENING: Has the patient had 2 falls in the last year or 1 fall with injury or currently using an Ambulatory Assistive Device (Walker, Cane, Wheelchair, Crutches, etc.)? No PATIENT GENDER DATA: Female. status: : No status: NO. PATIENT RELEVANT IMPLANT DATA REVIEWED: Not Applicable RADIOLOGY DEPARTMENT: Mammography PERIPHERAL IV DATA: Not applicable SIGNED BY: RT Jaylin(R) August 28, 2023 1:12 PM [facility] History of Present illness Narrative 08-28-2023 Isabelle Guillen RT(R) - 08/28/2023 1:00 PM EDT Note Date & Type Note Facility 08-28-2023 History of Presen t illness Narrative Radiology Service Progress Note PATIENT NAME: Myra Matthews DATE OF SERVICE: August 28, 2023 TIME: 1:12 PM PATIENT IDENTITY VERIFICATION COMPLETED USING TWO (2) IDENTIFIERS: Name and Date of confirmed by patient verbally. FALL SCREENING: Has the patient had 2 falls in the last year or 1 fall with injury or currently using an Ambulatory Assistive Device (Walker, Cane, Wheelchair, Crutches, etc.)? No PATIENT GENDER DATA: Female. status: : No status: NO. PATIENT RELEVANT IMPLANT DATA REVIEWED: Not Applicable RADIOLOGY DEPARTMENT: Mammography PERIPHERAL IV DATA: Not applicable SIGNED BY: RT Jaylin(R) August 28, 2023 1:12 PM documented in this encounter [facility] Progress note 10-21-2022 Note Date & Type Note Facility 10-21-2022 Note HNO ID: [id number] Author: CESAR Mosqueda Service: Radiology Author Type: Technologist Type: Progress Notes Filed: 10/21/2022 9:38 AM Note Text: Radiology Service Progress Note PATIENT NAME: Myra Matthews DATE OF SERVICE: October 21, 2022 TIME: 9:37 AM PATIENT IDENTITY VERIFICATION COMPLETED USING TWO (2) IDENTIFIERS: Name and Date of confirmed by patient verbally. FALL SCREENING: Has the patient had 2 falls in the last year or 1 fall with injury or currently using an Ambulatory Assistive Device (Walker, Cane, Wheelchair, Crutches, etc.)? No PATIENT GENDER DATA: Female. status: : No status: NO. PATIENT RELEVANT IMPLANT DATA REVIEWED: Not Applicable RADIOLOGY DEPARTMENT: Bone Density PERIPHERAL IV DATA: Not applicable SIGNED BY: RT Sierra October 21, 2022 9:37 AM [facility] History of Present illness Narrative 10-21-2022 CESAR Mosqueda - 10/21/2022 9:30 AM EST Note Date & Type Note Facility 10-21-2022 History of Presen t illness Narrative Radiology Service Progress Note PATIENT NAME: Myra Matthews DATE OF SERVICE: October 21, 2022 TIME: 9:37 AM PATIENT IDENTITY VERIFICATION COMPLETED USING TWO (2) IDENTIFIERS: Name and Date of confirmed by patient verbally. FALL SCREENING: Has the patient had 2 falls in the last year or 1 fall with injury or currently using an Ambulatory Assistive Device (Walker, Cane, Wheelchair, Crutches, etc.)? No PATIENT GENDER DATA: Female. status: : No status: NO. PATIENT RELEVANT IMPLANT DATA REVIEWED: Not Applicable RADIOLOGY DEPARTMENT: Bone Density PERIPHERAL IV DATA: Not applicable SIGNED BY: RT Sierra October 21, 2022 9:37 AM documented in this encounter [facility] Note 05-15-2022 Letter - Mammography Coordinator - 05/15/2022 8:51 AM EDT Note Date & Type Note Facility 05-15-2022 Miscellaneous Notes May 15, 2022 PID: [id number] Myra Matthews [address] [place] [address] Dear Ms. Matthews, We are pleased to inform you that the results of your recent breast imaging exam on 05/15/2022 are normal. Early detection of cancer is very important. We also understand recommendations regarding breast cancer screening are controversial. Please discuss with your primary care provider which strategy is best for you and whether a mammogram is right for you. Your imaging studies and report will be kept on file at [facility] as part of your permanent medical record and are available for your continuing care. Thank you for allowing us to help in meeting your health care needs. Sincerely, Dr. Rios Interpreting Radiologist [facility] (Normal over 40) documented in this encounter [facility] History of Present illness Narrative 05-15-2022 Renetta Bhagat - 05/15/2022 8:40 AM EDT Note Date & Type Note Facility 05-15-2022 History of Presen t illness Narrative Radiology Service Progress Note PATIENT NAME: Myra Matthews DATE OF SERVICE: May 15, 2022 TIME: 8:38 AM PATIENT IDENTITY VERIFICATION COMPLETED USING TWO (2) IDENTIFIERS: Name and Date of confirmed by patient verbally. FALL SCREENING: Has the patient had 2 falls in the last year or 1 fall with injury or currently using an Ambulatory Assistive Device (Walker, Cane, Wheelchair, Crutches, etc.)? No PATIENT GENDER DATA: Female. status: : No status: NO. PATIENT RELEVANT IMPLANT DATA REVIEWED: Not Applicable RADIOLOGY DEPARTMENT: Mammography PERIPHERAL IV DATA: Not applicable SIGNED BY: Noemí Del Toro RT(Bibi)(Rufina) May 15, 2022 8:38 AM documented in this encounter [facility] Advance Directives No Advanced Directives Records FoundDocuments on File Type Date Recorded Patient Bookkeeper Expl anation Advance Directive(s) 03/12/2021 9:26 AM Advance Directive(s) 07/02/2020 12:51 PM Advance Directive(s) 01/30/2020 11:07 AM Advance Directive(s) 05/03/2015 1:00 PM Advance Directive(s) 03/22/2010 10:29 PM Documents on File Type Date Recorded Patient Bookkeeper Expl anation Advance Directive(s) 05/03/2015 1:00 PM Advance Directive(s) 03/22/2010 10:29 PM Summary Purpose Family History No Family History Records FoundNo Family History Records Found Additional Source Comments Source Comments (unrecognize d section and content) In the event this informatio n is protected by the Federal Confidentiality of Alcohol and Drug Abuse Patient Records regulations: The Federal rules restrict any use of the information to criminally investigate or prosecute any alcohol or drug abuse patient.[facility] the event this information is protected by the Federal Confidentiality of Alcohol and Drug Abuse Patient Records regulations: The Federal rules restrict any use of the information to criminally investigate or prosecute any alcohol or drug abuse patient.[facility] the event this information is protected by the Federal Confidentiality of Alcohol and Drug Abuse Patient Records regulations: The Federal rules restrict any use of the information to criminally investigate or prosecute any alcohol or drug abuse patient.[facility] the event this information is protected by the Federal Confidentiality of Alcohol and Drug Abuse Patient Records regulations: The Federal rules restrict any use of the information to criminally investigate or prosecute any alcohol or drug abuse patient.[facility] Care Teams (unrecognized sec tion and content) Final Block Press Operator Relationship Specialty Start Date End Date Lambert Gayle MD PCP - General 05/01/15 Final Block Press Operator Relationship Specialty Start Date End Date Rebekah Morocho MD [address] [facility] [place] [address] PCP - General Family Medicine 08/27/23 INFORMATION SOURCE (unrecogn ized section and content) DATE CREATED AUTHOR AUTHOR'S ORGANIZ ATION 09/05/2023 [facility] FOR RECORDS PERTAINING TO PATIENTS WHO ARE OR HAVE BEEN ENROLLED IN A CHEMICAL DEPENDENCY/SUBSTANCEABUSE PROGRAM, SOME INFORMATION MAY BE OMITTED. This clinical summary was aggregated from multiple sources. Caution should be exercised in using it in the provision of clinical care. This summary normalizes information from multiple sources, and as a consequence, information in this document may materially change the coding, format and clinical context of patient data. In addition, data may be omitted in some cases. CLINICAL DECISIONS SHOULD BE BASED ON THE PRIMARY CLINICAL RECORDS. [employer] provides no warranty or guarantee of the accuracy or completeness of information in this document.
[2023-12-08 12:09] LABS: Absolute Lymphocyte Count 1.28 X10^3/uL (0.83-4.51); Absolute Neutrophil Count 3.1 X10^3/uL (2.0-7.7); Basophil# 0.06 X10^3/uL; Basophil% 1.1 % (0-1); Eosinophil# 0.42 X10^3/uL; Eosinophils% 7.8 % (0-5); Hematocrit 43.2 % (37-47); Hemoglobin 13.6 g/dL (12.0-15.0); Lymphocyte # 1.28 X10^3/ul (0.83-4.51); Lymphocyte % 23.7 % (19-41); Mean Corp Hgb Conc 31.5 g/dL (32-36); Mean Corpuscular Hgb 29.2 pg (27.0-32.0); Mean Corpuscular Volume 92.9 fL (81-99); Monocyte# 0.48 X10^3/uL; Monocyte% 8.9 % (0-10); NRBC Flagged by Analyzer 0 % (0-5); Neutrophil # 3.14 X10^3/uL (2.7-7.7); Neutrophil % 58.1 % (47-70); Platelet Count 189 K/mm3 (150-450); RBC Distribution Width CV 12.1 % (11.6-14.6); RBC Distribution Width SD 41.1 fl (35.1-43.9); Red Blood Count 4.65 M/mm3 (4.2-5.4); White Blood Count 5.4 K/mm3 (4.4-11.0)
[2023-12-08 12:33] LABS: AST(SGOT) 18 U/L (15-37); Alanine Aminotransfer ALT/SGPT 23 U/L (13-56); Albumin, Serum 3.5 g/dL (3.2-5.0); Alkaline Phosphatase 54 U/L (45-117); Anion Gap 3 (5-15); BUN 21 mg/dL (7-18); BUN/Creat Ratio 23.1 RATIO (10-20); Calcium,Total 8.6 mg/dL (8.5-10.1); Chloride 106 mmol/L (98-107); Creatinine, Serum 0.91 mg/dL (0.55-1.02); EST Glomerular Filtration Rate 64 mL/min (>60); Est Glom Filt Rate - Afr Amer 77 mL/min (>60); Globulin 3.6 g/dL (2.2-4.2); Glucose 108 mg/dL (74-106); Potassium 4.5 mmol/L (3.5-5.1); Protein, Total 7.1 g/dL (6.4-8.2); Sodium Level 138 mmol/L (136-145)
== END | disposition home or self-care (01) ==
LOC: BFHLAB 10:27
PROVIDERS: PCP Nurse Practitioner Family; Visit Provider Nurse Practitioner Family
DX: R06.02 Shortness of breath (principal); R10.84 Generalized abdominal pain; R14.0 Abdominal distension (gaseous)
CPT/HCPCS: 36415; 80053; 85025

== ENCOUNTER → 2024-09-01 | Outpatient (CLI) | payer MEDICARE, OTHER, SELFPAY ==
[2024-09-01 12:17] LABS: Absolute Lymphocyte Count 1.27 X10^3/uL (0.83-4.51); Absolute Neutrophil Count 3.4 X10^3/uL (2.0-7.7); Basophil# 0.06 X10^3/uL; Eosinophil# 0.53 X10^3/uL; Eosinophils% 9.2 % (0-5); Hematocrit 42.8 % (37-47); Hemoglobin 13.8 g/dL (12.0-15.0); Lymphocyte # 1.27 X10^3/ul (0.83-4.51); Lymphocyte % 21.9 % (19-41); Mean Corp Hgb Conc 32.2 g/dL (32-36); Mean Corpuscular Hgb 30.3 pg (27.0-32.0); Mean Corpuscular Volume 93.9 fL (81-99); Mean Platelet Vol. 10.5 fl (6.2-12.0); Monocyte# 0.49 X10^3/uL; Monocyte% 8.5 % (0-10); NRBC Flagged by Analyzer 0 % (0-5); Neutrophil # 3.43 X10^3/uL (2.7-7.7); Neutrophil % 59.2 % (47-70); Platelet Count 201 K/mm3 (150-450); RBC Distribution Width CV 12.5 % (11.6-14.6); RBC Distribution Width SD 43.4 fl (35.1-43.9); Red Blood Count 4.56 M/mm3 (4.2-5.4); White Blood Count 5.8 K/mm3 (4.4-11.0)
[2024-09-01 13:26] LABS: ALB/GLOB Ratio 0.9 RATIO (0.9-2.4); AST(SGOT) 17 U/L (15-37); Alanine Aminotransfer ALT/SGPT 16 U/L (13-56); Albumin, Serum 3.4 g/dL (3.2-5.0); Alkaline Phosphatase 54 U/L (45-117); Anion Gap 7 (5-15); BUN 15 mg/dL (7-18); BUN/Creat Ratio 15.6 RATIO (10-20); Chloride 106 mmol/L (98-107); Cholesterol 219 mg/dL (200); Creatinine, Serum 0.96 mg/dL (0.55-1.02); EST Glomerular Filtration Rate 60 mL/min (>60); Est Glom Filt Rate - Afr Amer 72 mL/min (>60); Globulin 3.6 g/dL (2.2-4.2); Glucose 111 mg/dL (74-106); High Density Lipoprotein 77 mg/dL; Potassium 4.3 mmol/L (3.5-5.1); Sodium Level 138 mmol/L (136-145); Triglycerides 96 mg/dL; Very Low Density Lipoprotein 19 mg/dL (5-40)
== END | disposition home or self-care (01) ==
LOC: BFHLAB 09:18
PROVIDERS: PCP Family Medicine; Referring Provider Family Medicine; Visit Provider Family Medicine
DX: I10 Essential (primary) hypertension (principal); I51.7 Cardiomegaly; E03.9 Hypothyroidism, unspecified; R73.01 Impaired fasting glucose
CPT/HCPCS: 36415; 80053; 80061; 84443; 85025

== ENCOUNTER → 2024-09-20 | Outpatient (CLI) | payer MEDICARE, OTHER, SELFPAY ==
--- NOTE | 2024-09-20 14:00 | RAD_ITS ---
STUDY: X-RAY - LEFT KNEE REASON FOR EXAM: Female, 74 years old. POSTERIOR PAIN TECHNIQUE: 4 views of the left knee. COMPARISON: None. FINDINGS: Normal visualized distal femur. Normal visualized proximal tibia and fibula. Normal proximal tibiofibular articulation. There is no demonstrated fracture. Normal medial femorotibial compartment. Normal lateral femorotibial compartment. Normal patellofemoral articulation. There is a small volume joint effusion. There are atherosclerotic calcifications. RAD/Knee 4 or More Views IMPRESSION: Small joint effusion. No demonstrated fracture. Electronically Signed: Kalin Harris MD at 16:04 EDT ,
== END | disposition home or self-care (01) ==
LOC: MTRAD 13:58
PROVIDERS: PCP Family Medicine; Referring Provider Family Medicine; Visit Provider Family Medicine
DX: M25.562 Pain in left knee (principal)
CPT/HCPCS: 73564

== ENCOUNTER → 2025-01-17 | Outpatient (CLI) | payer MEDICARE, OTHER, SELFPAY ==
[2025-01-17 16:28] LABS: Phosphorus 3.7 mg/dL (2.5-4.9)
[2025-01-19 16:51] LABS: Vitamin B12 382 pg/mL (211-911); Vitamin D,25 Hydroxy 40.2 ng/mL
== END | disposition home or self-care (01) ==
PROVIDERS: PCP Family Medicine; Visit Provider Nurse Practitioner Family
DX: K05.30 Chronic periodontitis, unspecified (principal)
CPT/HCPCS: 36415; 82306; 82310; 82607; 83735; 84100

== ENCOUNTER → 2025-01-19 | Outpatient (CLI) | payer MEDICARE, OTHER, SELFPAY ==
--- NOTE | 2025-01-19 10:24 | RAD_ITS ---
PROCEDURE: CHEST PA AND LATERAL REASON FOR EXAM: Dorsalgia TECHNIQUE: Frontal and lateral views of the chest. COMPARISON: None. FINDINGS: The heart size is normal. The mediastinal contour is unremarkable. The lungs are clear. The bones are unremarkable. There are atherosclerotic calcifications of the thoracic aorta. RAD/Chest PA and Lateral IMPRESSION: NEGATIVE CHEST No radiographic evidence of acute cardiopulmonary disease Reading Location: [facility]
--- NOTE | 2025-01-19 10:24 | RAD_ITS ---
PROCEDURE: Thoracic spine radiographs, three views REASON FOR EXAM: Back pain TECHNIQUE: Three views of the thoracic spine were obtained. COMPARISON: None. FINDINGS: Three views of the thoracic spine were obtained. The bones are osteopenic. Slight exaggeration of the normal thoracic kyphosis. There is nonspecific mild elevation right hemidiaphragm. Mild leftward curvature of the lower thoracic spine on the AP view. Included lower lungs clear. Mild chronic appearing anterior wedging of a few mid to lower thoracic vertebral bodies. No definite acute thoracic vertebral body fracture or focal subluxation. 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 RAD/Thoracic Spine 3 Views IMPRESSION: Osteopenia. No acute bony abnormality of the thoracic spine. 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 If there is persistent pain or clinical concern, short-term follow-up MRI evaluation may be considered. Reading Location: [facility]
== END | disposition home or self-care (01) ==
LOC: MTRAD 10:19
PROVIDERS: PCP Family Medicine; Referring Provider Family Medicine; Visit Provider Family Medicine
DX: M54.6 Pain in thoracic spine (principal)
CPT/HCPCS: 71046; 72072

== ENCOUNTER → 2025-08-24 | Outpatient (CLI) | payer MEDICARE, OTHER, SELFPAY ==
[2025-08-24 10:41] LABS: Hematocrit 41.1 % (37-47); Hemoglobin 13.7 g/dL (12.0-15.0); Immature Granulocytes Count 0.010 X10^3/uL (0.0-0.0); Mean Corp Hgb Conc 33.3 g/dL (32-36); Mean Corpuscular Volume 90.9 fL (81-99); Mean Platelet Vol. 10.7 fl (6.2-12.0); NRBC Flagged by Analyzer 0 % (0-5); Platelet Count 185 K/mm3 (150-450); RBC Distribution Width CV 12.0 % (11.6-14.6); RBC Distribution Width SD 40.2 fl (35.1-43.9); Red Blood Count 4.52 M/mm3 (4.2-5.4); White Blood Count 5.7 K/mm3 (4.4-11.0)
[2025-08-24 10:54] LABS: AST(SGOT) 19 U/L (<=31); Alanine Aminotransfer ALT/SGPT 13 U/L (<=34); Albumin, Serum 3.4 g/dL (3.4-4.8); Alkaline Phosphatase 51 U/L (35-104); Anion Gap 19 (5-15); BUN 22 mg/dL (4-19); BUN/Creat Ratio 21.1 RATIO (10-20); Calcium,Total 9.0 mg/dL (7.6-11.0); Carbon Dioxide 17.7 mmol/L (21.0-32.0); Chloride 102 mmol/L (98-108); Globulin 0.8 g/dL (2.2-4.2); Glucose 105 mg/dL (70-99); Potassium 4.6 mmol/L (3.3-5.1)
[2025-08-24 11:10] LABS: Cholesterol 99 mg/dL (<=200); Low Density Lipoprotein Calc. 5 mg/dL; Triglycerides 100 mg/dL; Very Low Density Lipoprotein 20 mg/dL (5-40); cholesterol:hdl ratio screen 1.33
== END | disposition home or self-care (01) ==
LOC: MTLAB 08:01
PROVIDERS: PCP Family Medicine; Referring Provider Family Medicine; Visit Provider Family Medicine
DX: E03.9 Hypothyroidism, unspecified (principal); I10 Essential (primary) hypertension; I51.7 Cardiomegaly; R73.01 Impaired fasting glucose
CPT/HCPCS: 36415; 80053; 80061; 83036; 84443; 85025

== ENCOUNTER → 2025-08-28 | Outpatient (CLI) | payer MEDICARE, OTHER, SELFPAY ==
[2025-08-28 11:10] LABS: AST(SGOT) 19 U/L (<=31); Alanine Aminotransfer ALT/SGPT 14 U/L (<=34); Albumin, Serum 4.0 g/dL (3.4-4.8); Alkaline Phosphatase 52 U/L (35-104); Anion Gap 10 (5-15); BUN 17 mg/dL (4-19); BUN/Creat Ratio 18.3 RATIO (10-20); Calcium,Total 9.8 mg/dL (7.6-11.0); Carbon Dioxide 27.8 mmol/L (21.0-32.0); Chloride 103 mmol/L (98-108); Cholesterol 241 mg/dL (<=200); Globulin 2.7 g/dL (2.2-4.2); Glucose 101 mg/dL (70-99); Low Density Lipoprotein Calc. 142 mg/dL; Potassium 4.4 mmol/L (3.3-5.1); Triglycerides 163 mg/dL; Very Low Density Lipoprotein 33 mg/dL (5-40); cholesterol:hdl ratio screen 3.63
== END | disposition home or self-care (01) ==
LOC: MTLAB 07:27
PROVIDERS: PCP Family Medicine; Referring Provider Family Medicine; Visit Provider Family Medicine
DX: E78.00 Pure hypercholesterolemia, unspecified (principal)
CPT/HCPCS: 36415; 80053; 80061